=== PATIENT | male | born 1955 | race Caucasian/White ===

== ENCOUNTER 2021-09-11 12:35 | Inpatient (IN) | payer BC ==
[2021-09-11 17:55] LABS: #Eosinphils 0.3 10x3/uL (0.0-0.5); #Monocytes 0.9 10x3/uL (0.0-1.1); #Neutrophils 5.6 10x3/uL (1.5-8.4); %Basophils 0.5 % (0.0-2.0); %Eosinophils 3.3 % (0.0-6.0); %Lymphocytes 17.7 % (18.0-47.0); Hemoglobin 12.4 g/dL (13.5-17.5); Mean Corpuscular Hemoglobin 30.3 pg (27.0-33.0); Mean Corpuscular Volume 89.2 fl (81.2-95.1); Mean Platelet Volume 9.4 fl (7.4-10.4); Platelet Count 347 10x3/uL (150-450); RBC Distribution Width 13.2 % (11.5-14.5); Red Blood Cell (RBC) Count 4.09 10x6/uL (4.32-5.72); White Blood Cell (WBC) Count 8.4 10x3/uL (3.5-10.5)
[2021-09-11 18:04] LABS: ALT (SGPT) 26 U/L (8-55); AST (SGOT) 27 U/L (5-34); Albumin 3.4 g/dL (3.4-4.8); Alkaline Phosphatase 66 U/L (40-110); Anion Gap 11 mmol/L (10-20); BUN (Urea Nitrogen) 15 mg/dL (8.4-25.7); Bilirubin, Total 0.3 mg/dL (0.2-1.2); Calc. Creatinine Clearance 0 mL/min (70-130); Calcium 9.1 mg/dL (7.8-10.44); Carbon Dioxide 31 mmol/L (23-31); Chloride 101 mmol/L (98-107); Globulin 3.6 g/dL (2.4-3.5); Glucose 94 mg/dL (80-115); Potassium 3.4 mmol/L (3.5-5.1); Sodium 140 mmol/L (136-145)
[2021-09-11] MEDS ORDERED: Cefepime 2 GM VIAL ONE (19:02)
[2021-09-11 20:44] LABS: Bilirubin Neg (Negative); Blood, Urine 10 (Negative); Clarity Clear (Clear); Glucose, Urine (Dipstick) Normal (Negative); Ketone, Urine Negative (Negative); Leukocyte Negative (Negative); Nitrite Negative (Negative); Protein, Urine (Dipstick) 15 mg/dl (Neg-Trace); Urobilinogen Normal mg/dL (Less than 2); pH, Urine 6.5 (5.0-9.0)
[2021-09-11 20:58] LABS: Bacteria/HPF Rare-Few HPF (None Seen); RBC/HPF 0-3 HPF (0-3); Squamous Epithelial 0-3 HPF (0-3); WBC/HPF 0-3 HPF (0-3)
[2021-09-11 20:59] LABS: Calcium Oxalate Crystals 1+ HPF (None Seen); Mucous/LPF Rare LPF (<2+)
[2021-09-11 21:20] LABS: SARS-CoV-2 NAA Rapid Test Not Detected (NotDetected)
[2021-09-12 01:43] VITALS: BMI 22.4
[2021-09-12] MEDS ORDERED: Calcium Carbonate 500 MG ChewTAB PO PRN (04:02)
[2021-09-12] MEDS ORDERED: Senokot S 8.6-50 MG TAB PO PRN (04:02)
[2021-09-12] MEDS ORDERED: Guaifenesin DM 100-10/5 ML UDCUP PO PRN (04:02)
[2021-09-12] MEDS ORDERED: Acetaminophen 325 MG TAB PO PRN (04:02)
[2021-09-12] MEDS ORDERED: Zolpidem Tartrate 5 MG TAB PO PRN (04:02)
[2021-09-12] MEDS ORDERED: Potassium Chloride 20 MEQ TAB PO SCH (04:15)
[2021-09-12] MEDS ORDERED: Pharmacy to Dose ABX/VANCOMYCIN IVPB PRN (04:26)
[2021-09-12] MEDS ORDERED: Sodium Chloride 0.9% 500 ML IV SCH (04:30)
[2021-09-12 05:42] LABS: Anion Gap 11 mmol/L (10-20); BUN (Urea Nitrogen) 19 mg/dL (8.4-25.7); Calc. Creatinine Clearance 82 mL/min (70-130); Calcium 8.3 mg/dL (7.8-10.44); Carbon Dioxide 27 mmol/L (23-31); Chloride 106 mmol/L (98-107); Glucose 117 mg/dL (80-115); Potassium 3.5 mmol/L (3.5-5.1); Sodium 140 mmol/L (136-145)
[2021-09-12 05:51] LABS: #Basophils 0.1 10x3/uL (0.0-0.2); #Eosinphils 0.3 10x3/uL (0.0-0.5); #Monocytes 0.9 10x3/uL (0.0-1.1); #Neutrophils 4.3 10x3/uL (1.5-8.4); %Basophils 0.8 % (0.0-2.0); %Eosinophils 3.9 % (0.0-6.0); %Monocytes 12.9 % (0.0-10.0); %Neutrophils 59.8 % (40.0-75.0); Hemoglobin 11.1 g/dL (13.5-17.5); Mean Corpuscular HGB CONC 33.8 g/dL (32.0-36.0); Mean Corpuscular Hemoglobin 30.6 pg (27.0-33.0); Mean Corpuscular Volume 90.4 fl (81.2-95.1); Mean Platelet Volume 9.4 fl (7.4-10.4); Platelet Count 293 10x3/uL (150-450); RBC Distribution Width 13.2 % (11.5-14.5); Red Blood Cell (RBC) Count 3.63 10x6/uL (4.32-5.72); White Blood Cell (WBC) Count 7.2 10x3/uL (3.5-10.5)
[2021-09-12] MEDS: Vancomycin HCl 750 MG in Sodium Chloride 0.9% 250 ML 250 ML IVPB SCH ×2 (06:49→17:05)
[2021-09-12] MEDS: Enoxaparin Sodium 40 MG/0.4 ML SYRINGE SC SCH (09:17)
[2021-09-12] MEDS: Tamsulosin HCl 0.4 MG CAP PO SCH (09:18)
[2021-09-12] MEDS: Baclofen 10 MG TAB PO SCH ×4 (09:18→21:12)
[2021-09-12] MEDS: Cefepime 1 GM in Sodium Chloride 0.9% 100 ML IVPB SCH ×2 (09:18→21:11)
[2021-09-12] MEDS: Furosemide 40 MG TAB PO SCH (09:18)
[2021-09-12] MEDS: Losartan Potassium 50 MG TAB PO SCH (09:18)
[2021-09-12] MEDS: HYDROcodone/Acetaminophen 5/325 mg Tablet PO PRN (14:12)
[2021-09-12] MEDS: Dutasteride 0.5 MG CAP PO SCH (21:11)
[2021-09-12] MEDS: Propranolol HCl LA 80 MG CAP PO SCH (21:11)
[2021-09-12] MEDS: Atorvastatin Calcium 40 MG TAB PO SCH (21:14)
[2021-09-13 05:10] LABS: Vancomycin, Trough 10.2 ug/mL
[2021-09-13] MEDS: Vancomycin HCl 1 GM in Sodium Chloride 0.9% 250 ML 250 ML IVPB SCH ×2 (05:51→18:27)
[2021-09-13] MEDS: Cefepime 1 GM in Sodium Chloride 0.9% 100 ML IVPB SCH ×2 (08:48→21:28)
[2021-09-13] MEDS: Furosemide 40 MG TAB PO SCH (08:48)
[2021-09-13] MEDS: Losartan Potassium 50 MG TAB PO SCH (08:48)
[2021-09-13] MEDS: Enoxaparin Sodium 40 MG/0.4 ML SYRINGE SC SCH (08:48)
[2021-09-13] MEDS: Tamsulosin HCl 0.4 MG CAP PO SCH (08:48)
[2021-09-13] MEDS: Baclofen 10 MG TAB PO SCH ×4 (08:48→21:29)
[2021-09-13] MEDS: Propranolol HCl LA 80 MG CAP PO SCH (21:29)
[2021-09-13] MEDS: Dutasteride 0.5 MG CAP PO SCH (21:29)
[2021-09-13] MEDS: Atorvastatin Calcium 40 MG TAB PO SCH (21:29)
[2021-09-14] MEDS: Vancomycin HCl 1 GM in Sodium Chloride 0.9% 250 ML 250 ML IVPB SCH (05:36)
[2021-09-14] MEDS ORDERED: Cefepime 2 GM in Sodium Chloride 0.9% 100 ML IVPB SCH (09:00)
[2021-09-14] MEDS: Baclofen 10 MG TAB PO SCH ×2 (10:14→21:42)
[2021-09-14] MEDS: Tamsulosin HCl 0.4 MG CAP PO SCH (10:15)
[2021-09-14] MEDS: Enoxaparin Sodium 40 MG/0.4 ML SYRINGE SC SCH (10:15)
[2021-09-14] MEDS: Losartan Potassium 50 MG TAB PO SCH (10:15)
[2021-09-14] MEDS: Furosemide 40 MG TAB PO SCH (10:15)
[2021-09-14] MEDS: HYDROcodone/Acetaminophen 5/325 mg Tablet PO PRN (10:57)
[2021-09-14 21:48] VITALS: BP 149/77; TEMP 98
== END 2021-09-14 14:30 | disposition home or self-care (01) | DRG 603 ==
LOC: CSHERS 12:35 → CSHTELE 09-12 00:07 → UNDOADMIN 09-12 00:07 → CSHTELE 09-12 04:02
PROVIDERS: ADMIT Student in an Organized Health Care Education/Training Program; ATTEND Internal Medicine
DX: L03.115 Cellulitis of right lower limb (principal); I69.351 Hemiplegia and hemiparesis following cerebral infarction affecting right dominant side; E78.5 Hyperlipidemia, unspecified; I10 Essential (primary) hypertension; N40.0 Benign prostatic hyperplasia without lower urinary tract symptoms; F90.9 Attention-deficit hyperactivity disorder, unspecified type; E87.6 Hypokalemia; E78.00 Pure hypercholesterolemia, unspecified; Z20.822 Contact with and (suspected) exposure to COVID-19; Z99.3 Dependence on wheelchair; Z87.891 Personal history of nicotine dependence; Z79.899 Other long term (current) drug therapy; Z79.2 Long term (current) use of antibiotics
CPT/HCPCS: 36415; 80048; 80053; 80202; 81003; 81015; 83605; 85025; 85652; 86140; 87040; 93923; 93970; J0692; J1650; J3370; J3490; J7030; J7050; U0002

== ENCOUNTER 2022-02-17 13:39 | Inpatient (IN) | payer BC ==
[2022-02-17 14:11] LABS: ALV-art Gradient 188.375 mmHg (0-20); Actual Bicarbonate (HCO3a) 20.1 mEq/L (22-28); Base Excess (BEa) -5.4 mEq/L (-2.0 to +3.0); CO2 Tension 39.3 mmHg (35.0-45.0); Calcium, Ionized (arterial) 1.22 mmol/L (1.12-1.30); Carboxyhemoglobin (COHb) 0.6 gm% (0.0-3.0); Hemoglobin (Hb) 16.4 g/dL (14.0-18.0); O2 Tension (PaO2), arterial 475.5 mmHg (> 80.0); Potassium - ABG Lab 3.8 mmol/L (3.70-5.30); Puncture Site LBA; pH, Arterial 7.33 (7.35-7.45)
[2022-02-17] MEDS ORDERED: Vancomycin HCl 500 MG VIAL ONE (14:15)
[2022-02-17] MEDS ORDERED: Piperacillin/Tazobactam 4.5 GM VIAL ONE (14:15)
[2022-02-17 14:27] LABS: #Monocytes 1.3 10x3/uL (0.0-1.1); #Neutrophils 12.6 10x3/uL (1.5-8.4); %Basophils 0.1 % (0.0-2.0); %Lymphocytes 6.2 % (18.0-47.0); %Monocytes 8.7 % (0.0-10.0); %Neutrophils 84.4 % (40.0-75.0); Hemoglobin 16.8 g/dL (13.5-17.5); Mean Corpuscular HGB CONC 33.5 g/dL (32.0-36.0); Mean Corpuscular Hemoglobin 30.2 pg (27.0-33.0); Mean Corpuscular Volume 90.1 fl (81.2-95.1); Mean Platelet Volume 10.8 fl (7.4-10.4); Platelet Count 205 10x3/uL (150-450); RBC Distribution Width 13.9 % (11.5-14.5); Red Blood Cell (RBC) Count 5.56 10x6/uL (4.32-5.72)
[2022-02-17 14:43] LABS: INR-International Normal Ratio 1.1; PTT 22.8 sec (22.0-33.0); Prothrombin Time 11.7 sec (9.5-12.1)
[2022-02-17] MEDS ORDERED: Iopamidol 300 61% 100 ML VIAL FS ONE (14:47)
[2022-02-17 14:49] LABS: ALT (SGPT) 32 U/L (8-55); AST (SGOT) 38 U/L (5-34); Albumin 4.4 g/dL (3.4-4.8); Alkaline Phosphatase 68 U/L (40-110); Anion Gap 26 mmol/L (10-20); BUN (Urea Nitrogen) 63 mg/dL (8.4-25.7); Calc. Creatinine Clearance 0 mL/min (70-130); Calcium 9.8 mg/dL (7.8-10.44); Carbon Dioxide 17 mmol/L (23-31); Chloride 106 mmol/L (98-107); Glucose 145 mg/dL (80-115); Potassium 4.1 mmol/L (3.5-5.1); Protein, Total 8.4 g/dL (5.8-8.1); Sodium 145 mmol/L (136-145)
[2022-02-17 15:07] LABS: Acetaminophen Less than 10.0 mcg/mL (10.0-30.0); Alcohol Less than 10 mg/dL (Less than 10); Salicylate Less than 8.0 mg/dL (15.0-30.0)
[2022-02-17 15:09] LABS: Lipase Less than 4 U/L (8-78)
[2022-02-17 15:22] LABS: Bilirubin 1+ (Negative); Blood, Urine 250 (Negative); Clarity Clear (Clear); Glucose, Urine (Dipstick) Normal (Negative); Ketone, Urine 50 mg/dL (Negative); Leukocyte Negative (Negative); Nitrite Negative (Negative); Protein, Urine (Dipstick) 100 mg/dl (Neg-Trace); Specific Gravity, Urine 1.025 (1.002-1.036); Urobilinogen Normal mg/dL (Less than 2)
[2022-02-17 15:30] LABS: Bacteria/HPF None Seen HPF (None Seen); Squamous Epithelial 0-3 HPF (0-3); WBC/HPF 0-3 HPF (0-3)
[2022-02-17 15:33] LABS: Amphetamine Detected (NotDetected); Barbiturates Screen Not Detected (NotDetected); Benzodiazepine Screen Not Detected (NotDetected); Cocaine Metabolite Screen Not Detected (NotDetected); Methadone Not Detected (NotDetected); Methamphetamine Detected (NotDetected); Opiate Screen Not Detected (NotDetected); Oxycodone Screen Not Detected (NotDetected); Phencyclidine (PCP) Not Detected (NotDetected); THC/Cannabinoid Screen Not Detected (NotDetected); Tricyclic Screen Not Detected (NotDetected)
[2022-02-17] MEDS ORDERED: Propofol 1,000 MG/100 ML VIAL IV ONE (15:57)
[2022-02-17] MEDS ORDERED: Fentanyl 100 MCG/2 ML VIAL ONE (15:58)
[2022-02-17] MEDS ORDERED: Pantoprazole 40 MG VIAL ONE (16:14)
[2022-02-17 16:28] LABS: SARS-CoV-2 NAA Rapid Test Not Detected (NotDetected)
[2022-02-17] MEDS ORDERED: Ondansetron PF 4 MG/2 ML Vial IVP PRN (17:55)
[2022-02-17] MEDS ORDERED: Norepinephrine 8 MG/0.9% NS 250 ML IVPB PRN (17:55)
[2022-02-17] MEDS ORDERED: Ventilator Sedation Protocol 1 EACH FS PRN (18:00)
[2022-02-17] MEDS ORDERED: Piperacillin/Tazobactam 3.375 GM in Sodium Chloride 0.9% 100 ML IVPB SCH (18:00)
[2022-02-17 18:03] LABS: Lactic Acid 1.4 mmol/L (0.5-2.2)
[2022-02-17] MEDS ORDERED: Pantoprazole 80 MG, Admixture Fee 1 EACH in Sodium Chloride 0.9% 100 ML IVP SCH (18:15)
[2022-02-17] MEDS ORDERED: DISCONTINUE PREVIOUS NARCOTIC PAIN MEDICATIONS AND BENZODIAZEPINES FS SCH (19:45)
[2022-02-17] MEDS ORDERED: Fentanyl BOLUS 250 ML IVPB PRN (19:45)
[2022-02-17] MEDS ORDERED: fentaNYL Citrate-0.9 % NaCl/PF 100 ML IVPB SCH (19:45)
[2022-02-17] MEDS ORDERED: Propofol BOLUS 1,000 MG/100 ML VIAL IV PRN (19:45)
[2022-02-17 20:06] LABS: Hemoglobin 15.8 g/dL (13.5-17.5); Platelet Count 196 10x3/uL (150-450)
[2022-02-17] MEDS ORDERED: Vancomycin 1 GM in Premix Bag 1 BAG IVPB SCH (21:00)
[2022-02-17] MEDS: Piperacillin/Tazobactam 3.375 GM in Sodium Chloride 0.9% 100 ML IVPB SCH (21:00)
[2022-02-17] MEDS ORDERED: Famotidine/PF 20 mg/2ml Vial SLOW IVP SCH (21:00)
[2022-02-17] MEDS: Sodium Chloride 0.9% 1,000 ML IV SCH (21:03)
[2022-02-17] MEDS: Pantoprazole 80 MG in Sodium Chloride 0.9% 100 ML IVPB SCH (21:17)
[2022-02-17] MEDS: Propofol 1,000 MG/100 ML VIAL IV PRN (21:18)
[2022-02-17 22:45] LABS: Actual Bicarbonate (HCO3a) 22.6 mEq/L (22-28); Base Excess (BEa) -1.4 mEq/L (-2.0 to +3.0); Calcium, Ionized (arterial) 1.21 mmol/L (1.12-1.30); Carboxyhemoglobin (COHb) 0.3 gm% (0.0-3.0); Hemoglobin (Hb) 15.6 g/dL (14.0-18.0); O2 Tension (PaO2), arterial 102.8 mmHg (> 80.0); Potassium - ABG Lab 3.3 mmol/L (3.70-5.30); Puncture Site RBA; pH, Arterial 7.42 (7.35-7.45)
[2022-02-18] MEDS: Propofol 1,000 MG/100 ML VIAL IV PRN ×2 (02:03→09:07)
[2022-02-18 03:25] LABS: #Monocytes 1.7 10x3/uL (0.0-1.1); #Neutrophils 15.7 10x3/uL (1.5-8.4); %Basophils 0.1 % (0.0-2.0); %Lymphocytes 4.9 % (18.0-47.0); %Monocytes 9.1 % (0.0-10.0); %Neutrophils 85.6 % (40.0-75.0); Hemoglobin 14.1 g/dL (13.5-17.5); Mean Corpuscular HGB CONC 34.7 g/dL (32.0-36.0); Mean Corpuscular Hemoglobin 30.5 pg (27.0-33.0); Mean Corpuscular Volume 87.7 fl (81.2-95.1); Mean Platelet Volume 10.4 fl (7.4-10.4); Platelet Count 172 10x3/uL (150-450); RBC Distribution Width 14.6 % (11.5-14.5); Red Blood Cell (RBC) Count 4.63 10x6/uL (4.32-5.72); White Blood Cell (WBC) Count 18.4 10x3/uL (3.5-10.5)
[2022-02-18 03:42] LABS: AST (SGOT) 47 U/L (5-34); Anion Gap 18 mmol/L (10-20); Bilirubin, Total 0.7 mg/dL (0.2-1.2); Calcium 8.8 mg/dL (7.8-10.44); Carbon Dioxide 22 mmol/L (23-31); Chloride 110 mmol/L (98-107); Potassium 3.5 mmol/L (3.5-5.1); Sodium 146 mmol/L (136-145)
[2022-02-18] MEDS: Piperacillin/Tazobactam 3.375 GM in Sodium Chloride 0.9% 100 ML IVPB SCH ×3 (03:47→20:03)
[2022-02-18 04:07] LABS: ALT (SGPT) 31 U/L (8-55); Albumin 3.4 g/dL (3.4-4.8); Alkaline Phosphatase 52 U/L (40-110); BUN (Urea Nitrogen) 54 mg/dL (8.4-25.7); CK (CPK) 3340 U/L (30-200); Calc. Creatinine Clearance 52 mL/min (70-130); Globulin 3.1 g/dL (2.4-3.5); Glucose 137 mg/dL (80-115); Protein, Total 6.5 g/dL (5.8-8.1)
[2022-02-18 06:35] LABS: Hemoglobin 13.5 g/dL (13.5-17.5); Platelet Count 171 10x3/uL (150-450)
[2022-02-18] MEDS: Pantoprazole 80 MG in Sodium Chloride 0.9% 100 ML IVPB SCH ×2 (07:12→17:16)
[2022-02-18] MEDS: Sodium Chloride 0.9% 1,000 ML IV SCH (07:36)
[2022-02-18 14:43] LABS: Hemoglobin 13.5 g/dL (13.5-17.5); Platelet Count 151 10x3/uL (150-450)
[2022-02-18] MEDS: VANCOMYCIN 1.25 GM/250 ML BAG 1.25 GM in Premix Bag 1 BAG IVPB SCH (15:39)
[2022-02-19] MEDS: Pantoprazole 80 MG in Sodium Chloride 0.9% 100 ML IVPB SCH ×3 (02:55→23:02)
[2022-02-19 05:01] LABS: Hemoglobin 13.2 g/dL (13.5-17.5); Mean Corpuscular HGB CONC 33.4 g/dL (32.0-36.0); Mean Corpuscular Volume 89.8 fl (81.2-95.1); Mean Platelet Volume 11.2 fl (7.4-10.4); Platelet Count 133 10x3/uL (150-450); RBC Distribution Width 14.8 % (11.5-14.5); White Blood Cell (WBC) Count 14.3 10x3/uL (3.5-10.5)
[2022-02-19 05:14] LABS: ALT (SGPT) 25 U/L (8-55); AST (SGOT) 44 U/L (5-34); Albumin 3.2 g/dL (3.4-4.8); Alkaline Phosphatase 78 U/L (40-110); Anion Gap 17 mmol/L (10-20); BUN (Urea Nitrogen) 39 mg/dL (8.4-25.7); Calc. Creatinine Clearance 66 mL/min (70-130); Calcium 8.9 mg/dL (7.8-10.44); Carbon Dioxide 21 mmol/L (23-31); Chloride 114 mmol/L (98-107); Globulin 3.1 g/dL (2.4-3.5); Glucose 118 mg/dL (80-115); Potassium 3.4 mmol/L (3.5-5.1); Protein, Total 6.3 g/dL (5.8-8.1); Sodium 149 mmol/L (136-145)
[2022-02-19] MEDS: Piperacillin/Tazobactam 3.375 GM in Sodium Chloride 0.9% 100 ML IVPB SCH ×3 (05:46→19:59)
[2022-02-19] MEDS: Sodium Chloride 0.9% 1,000 ML IV SCH ×2 (05:52→09:42)
[2022-02-19 05:55] LABS: MDiff Complete? YES
[2022-02-19 05:58] LABS: Band 22 % (5-11); Lymphocytes 4 % (21-51); Monocytes 10 % (0-10); Neutrophil 62 % (42-75); Platelet Morphology Comment Appears Adequate; Reactive Lymphocytes 2 % (0-10)
[2022-02-19 05:59] LABS: RBC Morphology Normal
[2022-02-19] MEDS: Acetaminophen 650 MG/20.3 ML UDCUP PO PRN ×2 (12:54→20:48)
[2022-02-19] MEDS: VANCOMYCIN 1.25 GM/250 ML BAG 1.25 GM in Premix Bag 1 BAG IVPB SCH (14:19)
[2022-02-19 14:25] LABS: Vancomycin, Trough 4.5 ug/mL
[2022-02-19] MEDS: hydrALAZINE 20 MG/ML VIAL SLOW IVP PRN ×2 (20:05→20:35)
[2022-02-19] MEDS ORDERED: Labetalol HCl 100 MG/20 ML VIAL SLOW IVP SCH (21:30)
[2022-02-20] MEDS: Sodium Chloride 0.9% 1,000 ML IV SCH (00:46)
[2022-02-20] MEDS: VANCOMYCIN 1.25 GM/250 ML BAG 1.25 GM in Premix Bag 1 BAG IVPB SCH ×2 (02:55→15:00)
[2022-02-20] MEDS ORDERED: Sodium Chloride 0.9% 100 ML ONE (04:02)
[2022-02-20] MEDS: Piperacillin/Tazobactam 3.375 GM in Sodium Chloride 0.9% 100 ML IVPB SCH ×3 (04:03→20:02)
[2022-02-20 05:19] LABS: Hemoglobin 12.8 g/dL (13.5-17.5); Mean Corpuscular HGB CONC 32.9 g/dL (32.0-36.0); Mean Corpuscular Hemoglobin 29.8 pg (27.0-33.0); Mean Corpuscular Volume 90.7 fl (81.2-95.1); Mean Platelet Volume 11.4 fl (7.4-10.4); Platelet Count 138 10x3/uL (150-450); RBC Distribution Width 15.3 % (11.5-14.5); Red Blood Cell (RBC) Count 4.29 10x6/uL (4.32-5.72); White Blood Cell (WBC) Count 16.5 10x3/uL (3.5-10.5)
[2022-02-20 05:33] LABS: ALT (SGPT) 21 U/L (8-55); AST (SGOT) 32 U/L (5-34); Alkaline Phosphatase 58 U/L (40-110); Anion Gap 15 mmol/L (10-20); BUN (Urea Nitrogen) 30 mg/dL (8.4-25.7); Calc. Creatinine Clearance 72 mL/min (70-130); Carbon Dioxide 25 mmol/L (23-31); Chloride 114 mmol/L (98-107); Estimated GFR 68; Globulin 3.3 g/dL (2.4-3.5); Glucose 115 mg/dL (80-115); Potassium 3.2 mmol/L (3.5-5.1); Protein, Total 6.3 g/dL (5.8-8.1); Sodium 151 mmol/L (136-145)
[2022-02-20 05:55] LABS: MDiff Complete? YES
[2022-02-20 05:58] LABS: Band 29 % (5-11); Lymphocytes 15 % (21-51); Monocytes 8 % (0-10); Neutrophil 48 % (42-75)
[2022-02-20 05:59] LABS: Dohle Bodies SLIGHT; Platelet Morphology Comment Appears Adequate; RBC Morphology Normal
[2022-02-20] MEDS ORDERED: Potassium Bicarbonate/Cit Ac 20 MEQ TAB PER TUBE SCH (08:45)
[2022-02-20] MEDS: Dexmedetomidine In 0.9 % NaCl 100 ML IVPB SCH ×3 (08:49→22:30)
[2022-02-20] MEDS: Dextrose 5 %-0.45 % NaCl 1,000 ML IV SCH (08:50)
[2022-02-20 08:52] LABS: Free T4 (Free Thyroxine) 0.89 ng/dL (0.70-1.48)
[2022-02-20] MEDS: hydrALAZINE 20 MG/ML VIAL SLOW IVP PRN (20:21)
[2022-02-21] MEDS: Pantoprazole 80 MG in Sodium Chloride 0.9% 100 ML IVPB SCH ×3 (00:50→22:06)
[2022-02-21 01:53] LABS: Vancomycin, Trough 17.8 ug/mL
[2022-02-21] MEDS: VANCOMYCIN 1.25 GM/250 ML BAG 1.25 GM in Premix Bag 1 BAG IVPB SCH ×2 (03:00→14:12)
[2022-02-21] MEDS: Dexmedetomidine In 0.9 % NaCl 100 ML IVPB SCH ×4 (03:28→20:37)
[2022-02-21] MEDS: Piperacillin/Tazobactam 3.375 GM in Sodium Chloride 0.9% 100 ML IVPB SCH ×3 (04:52→20:37)
[2022-02-21 05:51] LABS: Hemoglobin 11.5 g/dL (13.5-17.5); Mean Corpuscular HGB CONC 33.7 g/dL (32.0-36.0); Mean Corpuscular Hemoglobin 30.2 pg (27.0-33.0); Mean Corpuscular Volume 89.5 fl (81.2-95.1); Mean Platelet Volume 11.1 fl (7.4-10.4); Platelet Count 130 10x3/uL (150-450); RBC Distribution Width 15.1 % (11.5-14.5); Red Blood Cell (RBC) Count 3.81 10x6/uL (4.32-5.72); White Blood Cell (WBC) Count 14.4 10x3/uL (3.5-10.5)
[2022-02-21 06:05] LABS: ALT (SGPT) 23 U/L (8-55); AST (SGOT) 31 U/L (5-34); Albumin 2.8 g/dL (3.4-4.8); Alkaline Phosphatase 53 U/L (40-110); Anion Gap 13 mmol/L (10-20); BUN (Urea Nitrogen) 31 mg/dL (8.4-25.7); Bilirubin, Total 0.9 mg/dL (0.2-1.2); CK (CPK) 588 U/L (30-200); Calc. Creatinine Clearance 91 mL/min (70-130); Calcium 8.7 mg/dL (7.8-10.44); Carbon Dioxide 26 mmol/L (23-31); Chloride 114 mmol/L (98-107); Estimated GFR 87; Globulin 3.1 g/dL (2.4-3.5); Glucose 149 mg/dL (80-115); Magnesium 1.9 mg/dL (1.6-2.6); Potassium 3.1 mmol/L (3.5-5.1); Protein, Total 5.9 g/dL (5.8-8.1); Sodium 150 mmol/L (136-145)
[2022-02-21 06:06] LABS: MDiff Complete? YES
[2022-02-21 06:10] LABS: Band 17 % (5-11); Dohle Bodies SLIGHT; Eosinophils 1 % (0-10); Lymphocytes 10 % (21-51); Monocytes 6 % (0-10); Neutrophil 66 % (42-75); Platelet Morphology Comment Appears Adequate
[2022-02-21 06:11] LABS: RBC Morphology Normal
[2022-02-21] MEDS ORDERED: Potassium Bicarbonate/Cit Ac 20 MEQ TAB PER TUBE SCH (09:00)
[2022-02-21] MEDS ORDERED: Potassium Chloride 40 MEQ in Premix Bag 1 BAG IVPB SCH (09:00)
[2022-02-21] MEDS: Lorazepam 2 MG/ML VIAL SLOW IVP PRN (11:15)
[2022-02-21] MEDS: Dextrose 5 %-0.45 % NaCl 1,000 ML IV SCH (16:02)
[2022-02-22] MEDS: Dexmedetomidine In 0.9 % NaCl 100 ML IVPB SCH ×3 (00:58→16:25)
[2022-02-22] MEDS: Morphine 2 MG/ML VIAL SLOW IVP PRN ×2 (01:10→12:55)
[2022-02-22] MEDS: Lorazepam 2 MG/ML VIAL SLOW IVP PRN (01:24)
[2022-02-22] MEDS: VANCOMYCIN 1.25 GM/250 ML BAG 1.25 GM in Premix Bag 1 BAG IVPB SCH ×2 (01:52→13:35)
[2022-02-22 04:03] LABS: Hemoglobin 9.7 g/dL (13.5-17.5); Mean Corpuscular HGB CONC 34.3 g/dL (32.0-36.0); Mean Corpuscular Hemoglobin 30.7 pg (27.0-33.0); Mean Corpuscular Volume 89.6 fl (81.2-95.1); Mean Platelet Volume 11.1 fl (7.4-10.4); Platelet Count 115 10x3/uL (150-450); RBC Distribution Width 15.1 % (11.5-14.5); Red Blood Cell (RBC) Count 3.16 10x6/uL (4.32-5.72); White Blood Cell (WBC) Count 11.4 10x3/uL (3.5-10.5)
[2022-02-22 04:07] LABS: MDiff Complete? YES
[2022-02-22 04:23] LABS: ALT (SGPT) 29 U/L (8-55); AST (SGOT) 32 U/L (5-34); Albumin 2.4 g/dL (3.4-4.8); Alkaline Phosphatase 46 U/L (40-110); Anion Gap 12 mmol/L (10-20); BUN (Urea Nitrogen) 30 mg/dL (8.4-25.7); Bilirubin, Total 0.7 mg/dL (0.2-1.2); Calc. Creatinine Clearance 91 mL/min (70-130); Carbon Dioxide 27 mmol/L (23-31); Chloride 114 mmol/L (98-107); Estimated GFR 91; Globulin 2.8 g/dL (2.4-3.5); Glucose 112 mg/dL (80-115); Magnesium 1.8 mg/dL (1.6-2.6); Potassium 3.3 mmol/L (3.5-5.1); Protein, Total 5.2 g/dL (5.8-8.1); Sodium 150 mmol/L (136-145)
[2022-02-22 04:51] LABS: Platelet Morphology Comment Appears Decreased; RBC Morphology Normal
[2022-02-22 04:54] LABS: Lymphocytes 15 % (21-51); Monocytes 12 % (0-10); Neutrophil 73 % (42-75)
[2022-02-22] MEDS: Piperacillin/Tazobactam 3.375 GM in Sodium Chloride 0.9% 100 ML IVPB SCH (04:57)
[2022-02-22] MEDS ORDERED: Vancomycin 1 GM in Premix Bag 1 BAG IVPB SCH (09:15)
[2022-02-22] MEDS: Cefepime 2 GM in Sodium Chloride 0.9% 100 ML IVPB SCH ×2 (09:24→16:37)
[2022-02-22] MEDS: Pantoprazole 80 MG in Sodium Chloride 0.9% 100 ML IVPB SCH ×2 (09:30→20:08)
[2022-02-22] MEDS ORDERED: Albumin 25% 25 GM/100 ML BOT IVPB SCH (10:00)
[2022-02-22] MEDS: hydrALAZINE 20 MG/ML VIAL SLOW IVP PRN ×2 (11:47→17:25)
[2022-02-22 12:01] LABS: Bilirubin Neg (Negative); Blood, Urine 50 (Negative); Clarity Clear (Clear); Glucose, Urine (Dipstick) Normal (Negative); Ketone, Urine Negative (Negative); Leukocyte Negative (Negative); Nitrite Negative (Negative); Protein, Urine (Dipstick) 30 mg/dl (Neg-Trace); Urobilinogen Normal mg/dL (Less than 2)
[2022-02-22 12:07] LABS: Urine Culture Reflex No No
[2022-02-22 12:09] LABS: Bacteria/HPF None Seen HPF (None Seen); RBC/HPF 0-3 HPF (0-3); Squamous Epithelial 0-3 HPF (0-3); WBC/HPF 0-3 HPF (0-3)
[2022-02-22] MEDS ORDERED: Potassium Phosphate 30 MMOL in Sodium Chloride 0.9% 250 ML 250 ML IVPB SCH (13:15)
[2022-02-22 14:37] LABS: Potassium, Urine 23.9 mmol/L
[2022-02-22] MEDS ORDERED: Metolazone 5 MG TAB PO SCH (16:15)
[2022-02-22 16:32] LABS: Anion Gap 15 mmol/L (10-20); BUN (Urea Nitrogen) 25 mg/dL (8.4-25.7); Calc. Creatinine Clearance 114 mL/min (70-130); Calcium 8.5 mg/dL (7.8-10.44); Carbon Dioxide 25 mmol/L (23-31); Chloride 109 mmol/L (98-107); Estimated GFR 99; Glucose 97 mg/dL (80-115); Potassium 3.3 mmol/L (3.5-5.1); Sodium 146 mmol/L (136-145)
[2022-02-22] MEDS: Acetaminophen 650 MG Suppository PR PRN (18:40)
[2022-02-23] MEDS: Cefepime 2 GM in Sodium Chloride 0.9% 100 ML IVPB SCH ×3 (00:22→17:38)
[2022-02-23] MEDS: VANCOMYCIN 1.25 GM/250 ML BAG 1.25 GM in Premix Bag 1 BAG IVPB SCH ×2 (01:15→13:36)
[2022-02-23 03:14] LABS: #Basophils 0.1 10x3/uL (0.0-0.2); #Eosinphils 0.4 10x3/uL (0.0-0.5); #Monocytes 1.3 10x3/uL (0.0-1.1); #Neutrophils 11.1 10x3/uL (1.5-8.4); %Basophils 0.4 % (0.0-2.0); %Eosinophils 2.9 % (0.0-6.0); %Lymphocytes 7.8 % (18.0-47.0); %Monocytes 8.8 % (0.0-10.0); %Neutrophils 77.7 % (40.0-75.0); Hemoglobin 10.4 g/dL (13.5-17.5); Mean Corpuscular HGB CONC 33.1 g/dL (32.0-36.0); Mean Corpuscular Hemoglobin 29.7 pg (27.0-33.0); Mean Corpuscular Volume 89.7 fl (81.2-95.1); Mean Platelet Volume 10.6 fl (7.4-10.4); Platelet Count 146 10x3/uL (150-450); White Blood Cell (WBC) Count 14.3 10x3/uL (3.5-10.5)
[2022-02-23] MEDS: Acetaminophen 650 MG Suppository PR PRN (03:14)
[2022-02-23] MEDS: hydrALAZINE 20 MG/ML VIAL SLOW IVP PRN ×2 (03:14→12:58)
[2022-02-23 03:23] LABS: INR-International Normal Ratio 1.1; Prothrombin Time 11.4 sec (9.5-12.1)
[2022-02-23 03:49] LABS: ALT (SGPT) 32 U/L (8-55); AST (SGOT) 33 U/L (5-34); Albumin 2.8 g/dL (3.4-4.8); Alkaline Phosphatase 49 U/L (40-110); Anion Gap 15 mmol/L (10-20); BUN (Urea Nitrogen) 21 mg/dL (8.4-25.7); Bilirubin, Total 1.1 mg/dL (0.2-1.2); CK (CPK) 241 U/L (30-200); Calc. Creatinine Clearance 111 mL/min (70-130); Calcium 8.3 mg/dL (7.8-10.44); Carbon Dioxide 23 mmol/L (23-31); Chloride 110 mmol/L (98-107); Estimated GFR 98; Glucose 89 mg/dL (80-115); Magnesium 1.6 mg/dL (1.6-2.6); Protein, Total 5.8 g/dL (5.8-8.1); Sodium 145 mmol/L (136-145)
[2022-02-23 03:54] LABS: Potassium 2.9 mmol/L (3.5-5.1)
[2022-02-23] MEDS ORDERED: Magnesium 2 GM/50 ML BAG (IN WATER) ONE (04:21)
[2022-02-23] MEDS: Potassium Chloride 20 MEQ in Premix Bag 1 BAG IVPB SCH ×2 (04:25→06:42)
[2022-02-23] MEDS ORDERED: Magnesium 2 GM/50 ML(in water) 2 GM in Premix Bag 1 BAG IVPB SCH (04:30)
[2022-02-23] MEDS: Pantoprazole 80 MG in Sodium Chloride 0.9% 100 ML IVPB SCH ×2 (06:43→20:37)
[2022-02-23] MEDS ORDERED: Potassium Phosphate 30 MMOL in Sodium Chloride 0.9% 250 ML 250 ML IVPB SCH (07:00)
[2022-02-23] MEDS ORDERED: Metolazone 5 MG TAB PO SCH (08:30)
[2022-02-23] MEDS: Metolazone 2.5 MG TAB PO SCH (09:00)
[2022-02-23] MEDS: Spironolactone 25 MG TAB PO SCH (09:00)
[2022-02-23 13:07] LABS: Vancomycin, Trough 17.9 ug/mL
[2022-02-23] MEDS: Acetaminophen 650 MG/20.3 ML UDCUP PO PRN (13:37)
[2022-02-23] MEDS: Dutasteride 0.5 MG CAP PO SCH (20:38)
[2022-02-23] MEDS: Atorvastatin Calcium 40 MG TAB PO SCH (20:38)
[2022-02-23] MEDS: Baclofen 10 MG TAB PO SCH (20:38)
[2022-02-23] MEDS ORDERED: Baclofen 10 MG TAB PO SCH (21:00)
[2022-02-24] MEDS: Cefepime 2 GM in Sodium Chloride 0.9% 100 ML IVPB SCH ×3 (00:55→21:44)
[2022-02-24] MEDS: Acetaminophen 650 MG/20.3 ML UDCUP PO PRN (00:58)
[2022-02-24] MEDS: VANCOMYCIN 1.25 GM/250 ML BAG 1.25 GM in Premix Bag 1 BAG IVPB SCH ×2 (02:21→21:31)
[2022-02-24 05:37] LABS: #Eosinphils 0.3 10x3/uL (0.0-0.5); #Monocytes 1.1 10x3/uL (0.0-1.1); #Neutrophils 9.5 10x3/uL (1.5-8.4); %Basophils 0.3 % (0.0-2.0); %Lymphocytes 10.4 % (18.0-47.0); %Monocytes 8.9 % (0.0-10.0); %Neutrophils 75.3 % (40.0-75.0); Hemoglobin 11.6 g/dL (13.5-17.5); Mean Corpuscular HGB CONC 35.3 g/dL (32.0-36.0); Mean Corpuscular Hemoglobin 30.3 pg (27.0-33.0); Mean Corpuscular Volume 85.9 fl (81.2-95.1); Mean Platelet Volume 10.8 fl (7.4-10.4); Platelet Count 200 10x3/uL (150-450); RBC Distribution Width 14.6 % (11.5-14.5); Red Blood Cell (RBC) Count 3.83 10x6/uL (4.32-5.72); White Blood Cell (WBC) Count 12.7 10x3/uL (3.5-10.5)
[2022-02-24 05:54] LABS: ALT (SGPT) 32 U/L (8-55); AST (SGOT) 32 U/L (5-34); Albumin 2.9 g/dL (3.4-4.8); Alkaline Phosphatase 55 U/L (40-110); Anion Gap 15 mmol/L (10-20); BUN (Urea Nitrogen) 17 mg/dL (8.4-25.7); Bilirubin, Total 1.1 mg/dL (0.2-1.2); Calc. Creatinine Clearance 103 mL/min (70-130); Calcium 8.8 mg/dL (7.8-10.44); Carbon Dioxide 24 mmol/L (23-31); Chloride 103 mmol/L (98-107); Estimated GFR 97; Globulin 3.2 g/dL (2.4-3.5); Glucose 103 mg/dL (80-115); Magnesium 1.7 mg/dL (1.6-2.6); Protein, Total 6.1 g/dL (5.8-8.1); Sodium 139 mmol/L (136-145)
[2022-02-24 05:57] LABS: Potassium 2.9 mmol/L (3.5-5.1)
[2022-02-24] MEDS: Potassium Chloride 20 MEQ TAB PO SCH ×4 (06:58→21:47)
[2022-02-24] MEDS: Pantoprazole 80 MG in Sodium Chloride 0.9% 100 ML IVPB SCH ×2 (07:01→20:23)
[2022-02-24] MEDS ORDERED: Tamsulosin HCl 0.4 MG CAP PO SCH (09:00)
[2022-02-24] MEDS: Spironolactone 25 MG TAB PO SCH (10:15)
[2022-02-24] MEDS: Metolazone 2.5 MG TAB PO SCH (10:15)
[2022-02-24] MEDS: Baclofen 10 MG TAB PO SCH ×2 (10:15→21:39)
[2022-02-24] MEDS: Tamsulosin HCl 0.4 MG CAP PO SCH (10:16)
[2022-02-24] MEDS: Magnesium 2 GM/50 ML(in water) 2 GM in Premix Bag 1 BAG IVPB SCH ×2 (10:17→13:15)
[2022-02-24] MEDS ORDERED: Electrolyte Replacement Protocol FS SCH (16:00)
[2022-02-24] MEDS ORDERED: VANCOMYCIN 1.25 GM/250 ML BAG 1.25 GM in Premix Bag 1 BAG IVPB SCH (16:00)
[2022-02-24] MEDS: Albumin 25% 25 GM/100 ML BOT IVPB SCH ×2 (16:33→21:51)
[2022-02-24] MEDS ORDERED: PHOS-NAK 1 PKT PACK PO SCH (17:00)
[2022-02-24] MEDS: Atorvastatin Calcium 40 MG TAB PO SCH (21:38)
[2022-02-24] MEDS: Dutasteride 0.5 MG CAP PO SCH (21:39)
[2022-02-24] MEDS ORDERED: Potassium Chloride 20 MEQ TAB PO SCH (21:45)
[2022-02-24] MEDS: D5 LR w/20 mEq KCL 1,000 ML IV SCH (21:52)
[2022-02-24] MEDS ORDERED: Albumin 25% 25 GM/100 ML BOT IVPB SCH (22:00)
[2022-02-25] MEDS: D5 LR w/20 mEq KCL 1,000 ML IV SCH (04:01)
[2022-02-25 04:15] LABS: #Eosinphils 0.3 10x3/uL (0.0-0.5); #Neutrophils 8.2 10x3/uL (1.5-8.4); %Basophils 0.3 % (0.0-2.0); %Eosinophils 2.5 % (0.0-6.0); %Lymphocytes 11.6 % (18.0-47.0); %Neutrophils 74.7 % (40.0-75.0); Hemoglobin 11.2 g/dL (13.5-17.5); Mean Corpuscular HGB CONC 34.7 g/dL (32.0-36.0); Mean Corpuscular Hemoglobin 30.1 pg (27.0-33.0); Mean Corpuscular Volume 86.8 fl (81.2-95.1); Mean Platelet Volume 10.2 fl (7.4-10.4); Platelet Count 219 10x3/uL (150-450); RBC Distribution Width 14.2 % (11.5-14.5); Red Blood Cell (RBC) Count 3.72 10x6/uL (4.32-5.72)
[2022-02-25 04:29] LABS: Phosphorus 2.7 mg/dL (2.3-4.7)
[2022-02-25] MEDS: Cefepime 2 GM in Sodium Chloride 0.9% 100 ML IVPB SCH ×3 (04:32→21:44)
[2022-02-25 04:37] LABS: ALT (SGPT) 27 U/L (8-55); AST (SGOT) 23 U/L (5-34); Albumin 3.5 g/dL (3.4-4.8); Alkaline Phosphatase 47 U/L (40-110); Anion Gap 16 mmol/L (10-20); BUN (Urea Nitrogen) 17 mg/dL (8.4-25.7); Bilirubin, Total 1.4 mg/dL (0.2-1.2); Calc. Creatinine Clearance 93 mL/min (70-130); Calcium 9.3 mg/dL (7.8-10.44); Carbon Dioxide 24 mmol/L (23-31); Chloride 100 mmol/L (98-107); Estimated GFR 94; Globulin 3.1 g/dL (2.4-3.5); Glucose 99 mg/dL (80-115); Magnesium 1.8 mg/dL (1.6-2.6); Potassium 3.2 mmol/L (3.5-5.1); Protein, Total 6.6 g/dL (5.8-8.1); Sodium 137 mmol/L (136-145)
[2022-02-25] MEDS ORDERED: VANCOMYCIN 1.25 GM/250 ML BAG 1.25 GM in Premix Bag 1 BAG IVPB SCH ×2 (06:00→14:26)
[2022-02-25] MEDS ORDERED: Potassium Chloride 20 MEQ TAB PO SCH (06:00)
[2022-02-25] MEDS: Pantoprazole 80 MG in Sodium Chloride 0.9% 100 ML IVPB SCH (06:42)
[2022-02-25] MEDS ORDERED: Potassium Phosphate 30 MMOL in Sodium Chloride 0.9% 250 ML 250 ML IVPB SCH (08:00)
[2022-02-25] MEDS ORDERED: Magnesium 2 GM/50 ML(in water) 2 GM in Premix Bag 1 BAG IVPB SCH (09:00)
[2022-02-25] MEDS: Tamsulosin HCl 0.4 MG CAP PO SCH (09:50)
[2022-02-25] MEDS: Spironolactone 25 MG TAB PO SCH (09:50)
[2022-02-25] MEDS: Baclofen 10 MG TAB PO SCH ×2 (09:51→21:43)
[2022-02-25] MEDS ORDERED: Ondansetron ODT 4 MG TAB PO PRN (14:26)
[2022-02-25] MEDS ORDERED: Labetalol HCl 100 MG/20 ML VIAL SLOW IVP PRN (14:26)
[2022-02-25] MEDS ORDERED: Calcium Carbonate 500 MG ChewTAB PO PRN (14:26)
[2022-02-25] MEDS ORDERED: diphenhydrAMINE 25 MG CAP PO PRN (14:26)
[2022-02-25] MEDS ORDERED: hydrALAZINE 20 MG/ML VIAL SLOW IVP PRN (14:26)
[2022-02-25] MEDS ORDERED: Acetaminophen 650 MG Suppository PR PRN (14:26)
[2022-02-25] MEDS ORDERED: Moisturizing Cream (Eucerin) 113 GM JAR TOP PRN (14:27)
[2022-02-25] MEDS ORDERED: Senokot S 8.6-50 MG TAB PO PRN (14:27)
[2022-02-25] MEDS ORDERED: Benzonatate 100 MG CAP PO PRN (14:27)
[2022-02-25] MEDS ORDERED: Sodium Chloride 0.65% Nasal 44 ML BOT EA NARE PRN (14:27)
[2022-02-25] MEDS ORDERED: Artificial Tear Sol 15 ML BOT EA EYE PRN (14:27)
[2022-02-25] MEDS ORDERED: Electrolyte Replacement Protocol 1 EACH FS SCH (14:30)
[2022-02-25] MEDS ORDERED: Amlodipine 5 MG TAB PO SCH (15:00)
[2022-02-25 18:12] LABS: Potassium 3.9 mmol/L (3.5-5.1)
[2022-02-25] MEDS: Atorvastatin Calcium 40 MG TAB PO SCH (21:42)
[2022-02-25] MEDS: Dutasteride 0.5 MG CAP PO SCH (21:42)
[2022-02-26 04:44] LABS: #Basophils 0.1 10x3/uL (0.0-0.2); #Eosinphils 0.3 10x3/uL (0.0-0.5); %Basophils 0.4 % (0.0-2.0); %Eosinophils 2.1 % (0.0-6.0); %Lymphocytes 8.6 % (18.0-47.0); %Monocytes 6.8 % (0.0-10.0); %Neutrophils 79.7 % (40.0-75.0); Hemoglobin 11.8 g/dL (13.5-17.5); Mean Corpuscular HGB CONC 34.4 g/dL (32.0-36.0); Mean Corpuscular Hemoglobin 29.9 pg (27.0-33.0); Mean Corpuscular Volume 86.8 fl (81.2-95.1); Mean Platelet Volume 10.4 fl (7.4-10.4); Platelet Count 281 10x3/uL (150-450); RBC Distribution Width 14.3 % (11.5-14.5); Red Blood Cell (RBC) Count 3.95 10x6/uL (4.32-5.72); White Blood Cell (WBC) Count 15.1 10x3/uL (3.5-10.5)
[2022-02-26 05:04] LABS: ALT (SGPT) 33 U/L (8-55); AST (SGOT) 30 U/L (5-34); Albumin 3.5 g/dL (3.4-4.8); Alkaline Phosphatase 51 U/L (40-110); Anion Gap 16 mmol/L (10-20); BUN (Urea Nitrogen) 23 mg/dL (8.4-25.7); Bilirubin, Total 0.8 mg/dL (0.2-1.2); Calc. Creatinine Clearance 81 mL/min (70-130); Calcium 9.4 mg/dL (7.8-10.44); Carbon Dioxide 24 mmol/L (23-31); Chloride 100 mmol/L (98-107); Estimated GFR 81; Globulin 3.4 g/dL (2.4-3.5); Glucose 102 mg/dL (80-115); Magnesium 1.8 mg/dL (1.6-2.6); Potassium 4.1 mmol/L (3.5-5.1); Protein, Total 6.9 g/dL (5.8-8.1); Sodium 136 mmol/L (136-145)
[2022-02-26] MEDS ORDERED: Magnesium 2 GM/50 ML(in water) 2 GM in Premix Bag 1 BAG IVPB SCH (05:30)
[2022-02-26] MEDS: Cefepime 2 GM in Sodium Chloride 0.9% 100 ML IVPB SCH ×3 (05:43→21:55)
[2022-02-26] MEDS: Spironolactone 25 MG TAB PO SCH (10:32)
[2022-02-26] MEDS: Amlodipine 5 MG TAB PO SCH (10:33)
[2022-02-26] MEDS: Baclofen 10 MG TAB PO SCH ×2 (10:33→21:55)
[2022-02-26] MEDS: Acetaminophen 325 MG TAB PO PRN (10:34)
[2022-02-26] MEDS: Tamsulosin HCl 0.4 MG CAP PO SCH (10:34)
[2022-02-26] MEDS: Dutasteride 0.5 MG CAP PO SCH (21:55)
[2022-02-26] MEDS: Nystatin 500,000 UNITS/5 ML UDCUP SSW SCH (21:55)
[2022-02-26] MEDS: Atorvastatin Calcium 40 MG TAB PO SCH (21:55)
[2022-02-27] MEDS: Acetaminophen 325 MG TAB PO PRN (01:07)
[2022-02-27] MEDS: Cefepime 2 GM in Sodium Chloride 0.9% 100 ML IVPB SCH ×3 (04:31→21:16)
[2022-02-27 05:07] LABS: ALT (SGPT) 56 U/L (8-55); AST (SGOT) 49 U/L (5-34); Albumin 3.4 g/dL (3.4-4.8); Alkaline Phosphatase 53 U/L (40-110); Anion Gap 15 mmol/L (10-20); BUN (Urea Nitrogen) 28 mg/dL (8.4-25.7); Bilirubin, Total 0.4 mg/dL (0.2-1.2); Calc. Creatinine Clearance 75 mL/min (70-130); Calcium 9.3 mg/dL (7.8-10.44); Carbon Dioxide 23 mmol/L (23-31); Chloride 102 mmol/L (98-107); Estimated GFR 74; Globulin 3.3 g/dL (2.4-3.5); Glucose 131 mg/dL (80-115); Magnesium 1.9 mg/dL (1.6-2.6); Potassium 4.1 mmol/L (3.5-5.1); Protein, Total 6.7 g/dL (5.8-8.1); Sodium 136 mmol/L (136-145)
[2022-02-27 05:24] LABS: #Basophils 0.1 10x3/uL (0.0-0.2); #Eosinphils 0.3 10x3/uL (0.0-0.5); #Neutrophils 13.1 10x3/uL (1.5-8.4); %Basophils 0.4 % (0.0-2.0); %Eosinophils 2.1 % (0.0-6.0); %Lymphocytes 8.9 % (18.0-47.0); %Monocytes 5.8 % (0.0-10.0); %Neutrophils 80.3 % (40.0-75.0); Hemoglobin 11.5 g/dL (13.5-17.5); Mean Corpuscular HGB CONC 33.6 g/dL (32.0-36.0); Mean Corpuscular Hemoglobin 29.7 pg (27.0-33.0); Mean Corpuscular Volume 88.4 fl (81.2-95.1); Mean Platelet Volume 10.5 fl (7.4-10.4); Platelet Count 335 10x3/uL (150-450); RBC Distribution Width 14.6 % (11.5-14.5); Red Blood Cell (RBC) Count 3.87 10x6/uL (4.32-5.72); White Blood Cell (WBC) Count 16.3 10x3/uL (3.5-10.5)
[2022-02-27] MEDS ORDERED: Magnesium 2 GM/50 ML(in water) 2 GM in Premix Bag 1 BAG IVPB SCH (06:15)
[2022-02-27] MEDS: Tamsulosin HCl 0.4 MG CAP PO SCH (09:51)
[2022-02-27] MEDS: Nystatin 500,000 UNITS/5 ML UDCUP SSW SCH ×4 (09:51→21:16)
[2022-02-27] MEDS: Spironolactone 25 MG TAB PO SCH (09:52)
[2022-02-27] MEDS: Amlodipine 5 MG TAB PO SCH (09:53)
[2022-02-27] MEDS: Baclofen 10 MG TAB PO SCH ×2 (09:53→21:16)
[2022-02-27] MEDS: Dutasteride 0.5 MG CAP PO SCH (21:16)
[2022-02-27] MEDS: Atorvastatin Calcium 40 MG TAB PO SCH (21:16)
[2022-02-28] MEDS: Cefepime 2 GM in Sodium Chloride 0.9% 100 ML IVPB SCH (05:07)
[2022-02-28 05:11] LABS: ALT (SGPT) 73 U/L (8-55); AST (SGOT) 49 U/L (5-34); Albumin 3.5 g/dL (3.4-4.8); Alkaline Phosphatase 55 U/L (40-110); Anion Gap 16 mmol/L (10-20); BUN (Urea Nitrogen) 24 mg/dL (8.4-25.7); Bilirubin, Total 0.8 mg/dL (0.2-1.2); Calc. Creatinine Clearance 71 mL/min (70-130); Calcium 9.7 mg/dL (7.8-10.44); Carbon Dioxide 24 mmol/L (23-31); Chloride 99 mmol/L (98-107); Estimated GFR 79; Globulin 3.7 g/dL (2.4-3.5); Glucose 100 mg/dL (80-115); Magnesium 1.7 mg/dL (1.6-2.6); Potassium 4.2 mmol/L (3.5-5.1); Protein, Total 7.2 g/dL (5.8-8.1); Sodium 135 mmol/L (136-145)
[2022-02-28] MEDS ORDERED: Magnesium 2 GM/50 ML(in water) 2 GM in Premix Bag 1 BAG IVPB SCH (05:45)
[2022-02-28 07:29] LABS: Hemoglobin 11.9 g/dL (13.5-17.5); Mean Corpuscular HGB CONC 34.5 g/dL (32.0-36.0); Mean Corpuscular Hemoglobin 29.9 pg (27.0-33.0); Mean Corpuscular Volume 86.7 fl (81.2-95.1); Platelet Count 348 10x3/uL (150-450); RBC Distribution Width 14.4 % (11.5-14.5); Red Blood Cell (RBC) Count 3.98 10x6/uL (4.32-5.72)
[2022-02-28 07:30] LABS: MDiff Complete? YES
[2022-02-28 07:44] LABS: Strep pneumo Urine Ag NEGATIVE (NEGATIVE)
[2022-02-28 07:52] LABS: Band 1 % (5-11); Lymphocytes 6 % (21-51); Monocytes 6 % (0-10); Neutrophil 87 % (42-75)
[2022-02-28 07:53] LABS: Platelet Morphology Comment Appears Adequate; RBC Morphology Normal
[2022-02-28] MEDS: Nystatin 500,000 UNITS/5 ML UDCUP SSW SCH ×4 (09:57→21:14)
[2022-02-28] MEDS: Tamsulosin HCl 0.4 MG CAP PO SCH (09:57)
[2022-02-28] MEDS: Baclofen 10 MG TAB PO SCH ×2 (09:58→21:14)
[2022-02-28] MEDS: Amlodipine 5 MG TAB PO SCH (09:58)
[2022-02-28] MEDS: Spironolactone 25 MG TAB PO SCH (09:58)
[2022-02-28] MEDS ORDERED: Piperacillin/Tazobactam 3.375 GM in Sodium Chloride 0.9% 100 ML IVPB SCH ×2 (10:28→14:00)
[2022-02-28] MEDS ORDERED: Vancomycin HCl 1.25 GM, Admixture Fee 1 EACH in Sodium Chloride 0.9% 250 ML 250 ML IVPB SCH (11:00)
[2022-02-28] MEDS: Acetaminophen 325 MG TAB PO PRN (16:44)
[2022-02-28] MEDS: Piperacillin/Tazobactam 3.375 GM in Sodium Chloride 0.9% 100 ML IVPB SCH (16:46)
[2022-02-28 17:21] LABS: Bilirubin Neg (Negative); Blood, Urine 150 (Negative); Clarity Clear (Clear); Glucose, Urine (Dipstick) Normal (Negative); Ketone, Urine Negative (Negative); Leukocyte Negative (Negative); Nitrite Negative (Negative); Protein, Urine (Dipstick) 30 mg/dl (Neg-Trace); Specific Gravity, Urine 1.015 (1.002-1.036); Urobilinogen Normal mg/dL (Less than 2)
[2022-02-28 17:39] LABS: Bacteria/HPF Rare-Few HPF (None Seen); Mucous/LPF Rare LPF (<2+); RBC/HPF 0-3 HPF (0-3); Squamous Epithelial 0-3 HPF (0-3); WBC/HPF None Seen HPF (0-3)
[2022-02-28 19:52] LABS: Legionella Urinary Ag Negative (Negative)
[2022-02-28] MEDS: Atorvastatin Calcium 40 MG TAB PO SCH (21:14)
[2022-02-28] MEDS: Lactated Ringer's 1,000 ML IV SCH (21:14)
[2022-02-28] MEDS: Dutasteride 0.5 MG CAP PO SCH (21:19)
[2022-02-28] MEDS: Vancomycin HCl 1 GM in Sodium Chloride 0.9% 250 ML 250 ML IVPB SCH (23:20)
[2022-03-01] MEDS: Piperacillin/Tazobactam 3.375 GM in Sodium Chloride 0.9% 100 ML IVPB SCH ×3 (01:48→16:49)
[2022-03-01 05:25] LABS: Hemoglobin 11.8 g/dL (13.5-17.5); Mean Corpuscular HGB CONC 34.2 g/dL (32.0-36.0); Mean Corpuscular Hemoglobin 29.6 pg (27.0-33.0); Mean Corpuscular Volume 86.7 fl (81.2-95.1); Mean Platelet Volume 9.8 fl (7.4-10.4); Platelet Count 364 10x3/uL (150-450); RBC Distribution Width 14.4 % (11.5-14.5); Red Blood Cell (RBC) Count 3.98 10x6/uL (4.32-5.72); White Blood Cell (WBC) Count 22.9 10x3/uL (3.5-10.5)
[2022-03-01 05:35] LABS: ALT (SGPT) 52 U/L (8-55); AST (SGOT) 27 U/L (5-34); Albumin 3.4 g/dL (3.4-4.8); Alkaline Phosphatase 58 U/L (40-110); Anion Gap 16 mmol/L (10-20); BUN (Urea Nitrogen) 29 mg/dL (8.4-25.7); Bilirubin, Total 0.6 mg/dL (0.2-1.2); Calc. Creatinine Clearance 71 mL/min (70-130); Carbon Dioxide 25 mmol/L (23-31); Chloride 98 mmol/L (98-107); Estimated GFR 78; Globulin 3.9 g/dL (2.4-3.5); Glucose 105 mg/dL (80-115); Magnesium 1.8 mg/dL (1.6-2.6); Phosphorus 3.3 mg/dL (2.3-4.7); Potassium 4.5 mmol/L (3.5-5.1); Protein, Total 7.3 g/dL (5.8-8.1); Sodium 134 mmol/L (136-145)
[2022-03-01] MEDS: Acetaminophen 325 MG TAB PO PRN ×2 (05:38→21:40)
[2022-03-01] MEDS ORDERED: Magnesium 2 GM/50 ML(in water) 2 GM in Premix Bag 1 BAG IVPB SCH (05:45)
[2022-03-01 07:06] LABS: MDiff Complete? YES; Platelet Morphology Comment Appears Adequate
[2022-03-01 07:08] LABS: Band 1 % (5-11); Eosinophils 2 % (0-10); Lymphocytes 5 % (21-51); Monocytes 10 % (0-10); Neutrophil 82 % (42-75)
[2022-03-01] MEDS: Amlodipine 5 MG TAB PO SCH (09:11)
[2022-03-01] MEDS: Baclofen 10 MG TAB PO SCH ×2 (09:11→21:40)
[2022-03-01] MEDS: Spironolactone 25 MG TAB PO SCH (09:11)
[2022-03-01] MEDS: Pantoprazole 40 MG VIAL IVP SCH (09:11)
[2022-03-01] MEDS: Nystatin 500,000 UNITS/5 ML UDCUP SSW SCH ×4 (09:12→21:41)
[2022-03-01] MEDS: Tamsulosin HCl 0.4 MG CAP PO SCH (09:12)
[2022-03-01] MEDS: Lactated Ringer's 1,000 ML IV SCH ×2 (09:45→15:38)
[2022-03-01] MEDS: Vancomycin HCl 1 GM in Sodium Chloride 0.9% 250 ML 250 ML IVPB SCH (11:47)
[2022-03-01] MEDS: Atorvastatin Calcium 40 MG TAB PO SCH (21:40)
[2022-03-01] MEDS: Dutasteride 0.5 MG CAP PO SCH (21:40)
[2022-03-02] MEDS: Piperacillin/Tazobactam 3.375 GM in Sodium Chloride 0.9% 100 ML IVPB SCH ×3 (04:34→16:41)
[2022-03-02 05:41] LABS: #Basophils 0.1 10x3/uL (0.0-0.2); #Eosinphils 0.2 10x3/uL (0.0-0.5); #Monocytes 1.5 10x3/uL (0.0-1.1); #Neutrophils 14.4 10x3/uL (1.5-8.4); %Basophils 0.4 % (0.0-2.0); %Eosinophils 1.2 % (0.0-6.0); %Lymphocytes 6.8 % (18.0-47.0); %Monocytes 8.7 % (0.0-10.0); %Neutrophils 81.5 % (40.0-75.0); Hemoglobin 11.1 g/dL (13.5-17.5); Mean Corpuscular HGB CONC 33.9 g/dL (32.0-36.0); Mean Corpuscular Hemoglobin 29.8 pg (27.0-33.0); Mean Corpuscular Volume 87.7 fl (81.2-95.1); Mean Platelet Volume 10.2 fl (7.4-10.4); Platelet Count 387 10x3/uL (150-450); RBC Distribution Width 14.4 % (11.5-14.5); Red Blood Cell (RBC) Count 3.73 10x6/uL (4.32-5.72); White Blood Cell (WBC) Count 17.7 10x3/uL (3.5-10.5)
[2022-03-02] MEDS: Acetaminophen 325 MG TAB PO PRN ×3 (05:47→22:04)
[2022-03-02 05:51] LABS: Sodium 136 mmol/L (136-145)
[2022-03-02 05:52] LABS: ALT (SGPT) 69 U/L (8-55); AST (SGOT) 52 U/L (5-34); Albumin 3.3 g/dL (3.4-4.8); Alkaline Phosphatase 57 U/L (40-110); Anion Gap 17 mmol/L (10-20); BUN (Urea Nitrogen) 26 mg/dL (8.4-25.7); Bilirubin, Total 0.5 mg/dL (0.2-1.2); Calc. Creatinine Clearance 69 mL/min (70-130); Calcium 9.7 mg/dL (7.8-10.44); Carbon Dioxide 25 mmol/L (23-31); Chloride 99 mmol/L (98-107); Estimated GFR 76; Globulin 3.8 g/dL (2.4-3.5); Glucose 91 mg/dL (80-115); Potassium 4.5 mmol/L (3.5-5.1); Protein, Total 7.1 g/dL (5.8-8.1)
[2022-03-02] MEDS: Amlodipine 5 MG TAB PO SCH (08:46)
[2022-03-02] MEDS: Nystatin 500,000 UNITS/5 ML UDCUP SSW SCH ×4 (08:46→21:20)
[2022-03-02] MEDS: Pantoprazole 40 MG VIAL IVP SCH (08:46)
[2022-03-02] MEDS: Tamsulosin HCl 0.4 MG CAP PO SCH (08:46)
[2022-03-02] MEDS: Baclofen 10 MG TAB PO SCH ×2 (08:47→21:13)
[2022-03-02] MEDS: Spironolactone 25 MG TAB PO SCH (08:47)
[2022-03-02] MEDS: Lactated Ringer's 1,000 ML IV SCH (10:02)
[2022-03-02] MEDS: Dutasteride 0.5 MG CAP PO SCH (21:13)
[2022-03-02] MEDS: Atorvastatin Calcium 40 MG TAB PO SCH (21:13)
[2022-03-03] MEDS: Lactated Ringer's 1,000 ML IV SCH ×2 (01:30→11:19)
[2022-03-03] MEDS: Piperacillin/Tazobactam 3.375 GM in Sodium Chloride 0.9% 100 ML IVPB SCH ×3 (02:56→16:47)
[2022-03-03 04:26] LABS: #Basophils 0.1 10x3/uL (0.0-0.2); #Eosinphils 0.2 10x3/uL (0.0-0.5); #Monocytes 1.7 10x3/uL (0.0-1.1); #Neutrophils 11.8 10x3/uL (1.5-8.4); %Basophils 0.3 % (0.0-2.0); %Eosinophils 1.1 % (0.0-6.0); %Lymphocytes 8.4 % (18.0-47.0); %Monocytes 11.2 % (0.0-10.0); %Neutrophils 77.8 % (40.0-75.0); Hemoglobin 10.2 g/dL (13.5-17.5); Mean Corpuscular HGB CONC 33.8 g/dL (32.0-36.0); Mean Corpuscular Hemoglobin 29.5 pg (27.0-33.0); Mean Corpuscular Volume 87.3 fl (81.2-95.1); Mean Platelet Volume 9.7 fl (7.4-10.4); Platelet Count 419 10x3/uL (150-450); RBC Distribution Width 14.2 % (11.5-14.5); Red Blood Cell (RBC) Count 3.46 10x6/uL (4.32-5.72); White Blood Cell (WBC) Count 15.1 10x3/uL (3.5-10.5)
[2022-03-03] MEDS: Acetaminophen 325 MG TAB PO PRN ×3 (04:36→20:50)
[2022-03-03 04:38] LABS: ALT (SGPT) 90 U/L (8-55); AST (SGOT) 67 U/L (5-34); Albumin 3.1 g/dL (3.4-4.8); Alkaline Phosphatase 54 U/L (40-110); Anion Gap 16 mmol/L (10-20); BUN (Urea Nitrogen) 27 mg/dL (8.4-25.7); Bilirubin, Total 0.4 mg/dL (0.2-1.2); Calc. Creatinine Clearance 79 mL/min (70-130); Calcium 9.4 mg/dL (7.8-10.44); Carbon Dioxide 24 mmol/L (23-31); Chloride 101 mmol/L (98-107); Estimated GFR 89; Globulin 3.7 g/dL (2.4-3.5); Glucose 104 mg/dL (80-115); Potassium 4.3 mmol/L (3.5-5.1); Protein, Total 6.8 g/dL (5.8-8.1); Sodium 137 mmol/L (136-145)
[2022-03-03] MEDS: Amlodipine 5 MG TAB PO SCH (08:29)
[2022-03-03] MEDS: Spironolactone 25 MG TAB PO SCH (08:29)
[2022-03-03] MEDS: Nystatin 500,000 UNITS/5 ML UDCUP SSW SCH ×4 (08:29→21:26)
[2022-03-03] MEDS: Baclofen 10 MG TAB PO SCH ×2 (08:30→21:26)
[2022-03-03] MEDS: Tamsulosin HCl 0.4 MG CAP PO SCH (08:30)
[2022-03-03] MEDS: Atorvastatin Calcium 40 MG TAB PO SCH (21:26)
[2022-03-03] MEDS: Dutasteride 0.5 MG CAP PO SCH (21:26)
[2022-03-04] MEDS: Piperacillin/Tazobactam 3.375 GM in Sodium Chloride 0.9% 100 ML IVPB SCH ×3 (01:25→16:57)
[2022-03-04 04:51] LABS: ALT (SGPT) 91 U/L (8-55); AST (SGOT) 64 U/L (5-34); Albumin 3.1 g/dL (3.4-4.8); Alkaline Phosphatase 55 U/L (40-110); Anion Gap 13 mmol/L (10-20); BUN (Urea Nitrogen) 20 mg/dL (8.4-25.7); Bilirubin, Total 0.4 mg/dL (0.2-1.2); Calc. Creatinine Clearance 77 mL/min (70-130); Calcium 9.5 mg/dL (7.8-10.44); Carbon Dioxide 25 mmol/L (23-31); Chloride 102 mmol/L (98-107); Estimated GFR 82; Globulin 3.7 g/dL (2.4-3.5); Glucose 97 mg/dL (80-115); Protein, Total 6.8 g/dL (5.8-8.1); Sodium 136 mmol/L (136-145)
[2022-03-04] MEDS: Acetaminophen 325 MG TAB PO PRN ×3 (04:52→21:56)
[2022-03-04] MEDS: Lactated Ringer's 1,000 ML IV SCH ×2 (04:53→14:14)
[2022-03-04 04:58] LABS: #Basophils 0.1 10x3/uL (0.0-0.2); #Eosinphils 0.1 10x3/uL (0.0-0.5); #Monocytes 1.6 10x3/uL (0.0-1.1); #Neutrophils 11.6 10x3/uL (1.5-8.4); %Basophils 0.5 % (0.0-2.0); %Eosinophils 0.7 % (0.0-6.0); %Lymphocytes 8.8 % (18.0-47.0); %Monocytes 10.7 % (0.0-10.0); %Neutrophils 78.4 % (40.0-75.0); Hemoglobin 10.1 g/dL (13.5-17.5); Mean Corpuscular HGB CONC 34.2 g/dL (32.0-36.0); Mean Corpuscular Hemoglobin 29.6 pg (27.0-33.0); Mean Corpuscular Volume 86.5 fl (81.2-95.1); Mean Platelet Volume 9.7 fl (7.4-10.4); Platelet Count 421 10x3/uL (150-450); RBC Distribution Width 14.5 % (11.5-14.5); Red Blood Cell (RBC) Count 3.41 10x6/uL (4.32-5.72); White Blood Cell (WBC) Count 14.8 10x3/uL (3.5-10.5)
[2022-03-04] MEDS: Nystatin 500,000 UNITS/5 ML UDCUP SSW SCH ×4 (09:31→21:56)
[2022-03-04] MEDS: Tamsulosin HCl 0.4 MG CAP PO SCH (09:31)
[2022-03-04] MEDS: Baclofen 10 MG TAB PO SCH ×2 (09:32→21:56)
[2022-03-04] MEDS: Spironolactone 25 MG TAB PO SCH (09:32)
[2022-03-04] MEDS: Amlodipine 5 MG TAB PO SCH (09:32)
[2022-03-04] MEDS: Atorvastatin Calcium 40 MG TAB PO SCH (21:56)
[2022-03-04] MEDS: Dutasteride 0.5 MG CAP PO SCH (21:57)
[2022-03-05] MEDS: Lactated Ringer's 1,000 ML IV SCH ×3 (01:03→23:51)
[2022-03-05] MEDS: Piperacillin/Tazobactam 3.375 GM in Sodium Chloride 0.9% 100 ML IVPB SCH ×3 (01:29→17:02)
[2022-03-05 04:46] LABS: #Basophils 0.1 10x3/uL (0.0-0.2); #Eosinphils 0.1 10x3/uL (0.0-0.5); #Monocytes 1.4 10x3/uL (0.0-1.1); #Neutrophils 11.4 10x3/uL (1.5-8.4); %Basophils 0.5 % (0.0-2.0); %Eosinophils 0.9 % (0.0-6.0); %Monocytes 9.4 % (0.0-10.0); %Neutrophils 76.2 % (40.0-75.0); Hemoglobin 11.1 g/dL (13.5-17.5); Mean Corpuscular HGB CONC 34.3 g/dL (32.0-36.0); Mean Corpuscular Hemoglobin 29.6 pg (27.0-33.0); Mean Corpuscular Volume 86.4 fl (81.2-95.1); Mean Platelet Volume 9.3 fl (7.4-10.4); Platelet Count 473 10x3/uL (150-450); RBC Distribution Width 14.5 % (11.5-14.5); Red Blood Cell (RBC) Count 3.75 10x6/uL (4.32-5.72)
[2022-03-05 05:01] LABS: ALT (SGPT) 124 U/L (8-55); AST (SGOT) 91 U/L (5-34); Albumin 3.3 g/dL (3.4-4.8); Alkaline Phosphatase 73 U/L (40-110); Anion Gap 15 mmol/L (10-20); BUN (Urea Nitrogen) 19 mg/dL (8.4-25.7); Bilirubin, Total 0.5 mg/dL (0.2-1.2); Calc. Creatinine Clearance 73 mL/min (70-130); Calcium 9.9 mg/dL (7.8-10.44); Carbon Dioxide 26 mmol/L (23-31); Chloride 102 mmol/L (98-107); Estimated GFR 76; Globulin 4.6 g/dL (2.4-3.5); Glucose 96 mg/dL (80-115); Potassium 4.2 mmol/L (3.5-5.1); Protein, Total 7.9 g/dL (5.8-8.1); Sodium 139 mmol/L (136-145)
[2022-03-05] MEDS: Nystatin 500,000 UNITS/5 ML UDCUP SSW SCH ×4 (08:47→20:44)
[2022-03-05] MEDS: Amlodipine 5 MG TAB PO SCH (08:47)
[2022-03-05] MEDS: Baclofen 10 MG TAB PO SCH ×2 (08:48→20:43)
[2022-03-05] MEDS: Spironolactone 25 MG TAB PO SCH (08:48)
[2022-03-05] MEDS: Tamsulosin HCl 0.4 MG CAP PO SCH (08:48)
[2022-03-05] MEDS: METHYLPHENIDATE 5 MG PO SCH (18:03)
[2022-03-05] MEDS: Atorvastatin Calcium 40 MG TAB PO SCH (20:43)
[2022-03-05] MEDS: Dutasteride 0.5 MG CAP PO SCH (20:53)
[2022-03-05] MEDS: Acetaminophen 325 MG TAB PO PRN (23:52)
[2022-03-06] MEDS: Piperacillin/Tazobactam 3.375 GM in Sodium Chloride 0.9% 100 ML IVPB SCH ×3 (01:30→18:29)
[2022-03-06 05:50] LABS: #Basophils 0.1 10x3/uL (0.0-0.2); #Eosinphils 0.2 10x3/uL (0.0-0.5); #Neutrophils 6.9 10x3/uL (1.5-8.4); %Basophils 0.5 % (0.0-2.0); %Eosinophils 1.9 % (0.0-6.0); %Monocytes 9.6 % (0.0-10.0); %Neutrophils 69.9 % (40.0-75.0); Hemoglobin 9.7 g/dL (13.5-17.5); Mean Corpuscular HGB CONC 34.3 g/dL (32.0-36.0); Mean Corpuscular Hemoglobin 29.6 pg (27.0-33.0); Mean Corpuscular Volume 86.3 fl (81.2-95.1); Mean Platelet Volume 9.6 fl (7.4-10.4); Platelet Count 466 10x3/uL (150-450); RBC Distribution Width 14.6 % (11.5-14.5); Red Blood Cell (RBC) Count 3.28 10x6/uL (4.32-5.72); White Blood Cell (WBC) Count 9.9 10x3/uL (3.5-10.5)
[2022-03-06 06:06] LABS: ALT (SGPT) 171 U/L (8-55); AST (SGOT) 135 U/L (5-34); Albumin 2.9 g/dL (3.4-4.8); Alkaline Phosphatase 62 U/L (40-110); Anion Gap 15 mmol/L (10-20); BUN (Urea Nitrogen) 20 mg/dL (8.4-25.7); Bilirubin, Total 0.3 mg/dL (0.2-1.2); Calc. Creatinine Clearance 71 mL/min (70-130); Calcium 9.4 mg/dL (7.8-10.44); Carbon Dioxide 25 mmol/L (23-31); Chloride 103 mmol/L (98-107); Estimated GFR 79; Globulin 4.1 g/dL (2.4-3.5); Glucose 91 mg/dL (80-115); Potassium 3.9 mmol/L (3.5-5.1); Sodium 139 mmol/L (136-145)
[2022-03-06] MEDS: METHYLPHENIDATE 5 MG PO SCH (06:10)
[2022-03-06] MEDS: Spironolactone 25 MG TAB PO SCH (10:14)
[2022-03-06] MEDS: Nystatin 500,000 UNITS/5 ML UDCUP SSW SCH ×4 (10:14→20:03)
[2022-03-06] MEDS: Tamsulosin HCl 0.4 MG CAP PO SCH (10:15)
[2022-03-06] MEDS: Baclofen 10 MG TAB PO SCH ×2 (10:15→20:03)
[2022-03-06] MEDS: Amlodipine 5 MG TAB PO SCH (10:16)
[2022-03-06] MEDS: Acetaminophen 325 MG TAB PO PRN ×2 (10:17→20:03)
[2022-03-06] MEDS: Dutasteride 0.5 MG CAP PO SCH (20:03)
[2022-03-06] MEDS: Atorvastatin Calcium 40 MG TAB PO SCH (20:03)
[2022-03-06] MEDS: Lactated Ringer's 1,000 ML IV SCH (20:39)
[2022-03-07] MEDS: Piperacillin/Tazobactam 3.375 GM in Sodium Chloride 0.9% 100 ML IVPB SCH ×3 (02:17→17:37)
[2022-03-07 04:50] LABS: ALT (SGPT) 158 U/L (8-55); AST (SGOT) 91 U/L (5-34); Alkaline Phosphatase 61 U/L (40-110); Anion Gap 14 mmol/L (10-20); BUN (Urea Nitrogen) 20 mg/dL (8.4-25.7); Bilirubin, Total 0.3 mg/dL (0.2-1.2); Calc. Creatinine Clearance 77 mL/min (70-130); Calcium 9.4 mg/dL (7.8-10.44); Carbon Dioxide 25 mmol/L (23-31); Chloride 104 mmol/L (98-107); Estimated GFR 87; Glucose 87 mg/dL (80-115); Sodium 139 mmol/L (136-145)
[2022-03-07 05:27] LABS: #Basophils 0.1 10x3/uL (0.0-0.2); #Eosinphils 0.2 10x3/uL (0.0-0.5); #Monocytes 0.9 10x3/uL (0.0-1.1); #Neutrophils 6.9 10x3/uL (1.5-8.4); %Basophils 0.8 % (0.0-2.0); %Eosinophils 2.3 % (0.0-6.0); %Lymphocytes 19.6 % (18.0-47.0); %Monocytes 8.6 % (0.0-10.0); %Neutrophils 67.5 % (40.0-75.0); Hemoglobin 10.1 g/dL (13.5-17.5); Mean Corpuscular HGB CONC 33.9 g/dL (32.0-36.0); Mean Corpuscular Hemoglobin 29.4 pg (27.0-33.0); Mean Corpuscular Volume 86.6 fl (81.2-95.1); Mean Platelet Volume 9.6 fl (7.4-10.4); Platelet Count 501 10x3/uL (150-450); RBC Distribution Width 14.6 % (11.5-14.5); Red Blood Cell (RBC) Count 3.44 10x6/uL (4.32-5.72); White Blood Cell (WBC) Count 10.2 10x3/uL (3.5-10.5)
[2022-03-07] MEDS: Acetaminophen 325 MG TAB PO PRN ×2 (09:45→21:35)
[2022-03-07] MEDS: Spironolactone 25 MG TAB PO SCH (09:46)
[2022-03-07] MEDS: Nystatin 500,000 UNITS/5 ML UDCUP SSW SCH ×4 (09:46→21:35)
[2022-03-07] MEDS: Amlodipine 5 MG TAB PO SCH (09:47)
[2022-03-07] MEDS: Tamsulosin HCl 0.4 MG CAP PO SCH (09:47)
[2022-03-07] MEDS: Baclofen 10 MG TAB PO SCH ×2 (09:48→21:35)
[2022-03-07] MEDS: Lactated Ringer's 1,000 ML IV SCH (12:09)
[2022-03-07] MEDS: Atorvastatin Calcium 40 MG TAB PO SCH (21:35)
[2022-03-07] MEDS: Dutasteride 0.5 MG CAP PO SCH (21:36)
[2022-03-08] MEDS: Lactated Ringer's 1,000 ML IV SCH ×2 (01:26→13:19)
[2022-03-08] MEDS: Piperacillin/Tazobactam 3.375 GM in Sodium Chloride 0.9% 100 ML IVPB SCH ×3 (02:10→17:35)
[2022-03-08 03:59] LABS: #Basophils 0.1 10x3/uL (0.0-0.2); #Eosinphils 0.2 10x3/uL (0.0-0.5); #Monocytes 0.8 10x3/uL (0.0-1.1); #Neutrophils 6.1 10x3/uL (1.5-8.4); %Basophils 0.5 % (0.0-2.0); %Eosinophils 2.2 % (0.0-6.0); %Lymphocytes 19.8 % (18.0-47.0); %Neutrophils 67.4 % (40.0-75.0); Hemoglobin 9.7 g/dL (13.5-17.5); Mean Corpuscular HGB CONC 33.8 g/dL (32.0-36.0); Mean Corpuscular Volume 85.7 fl (81.2-95.1); Mean Platelet Volume 9.3 fl (7.4-10.4); Platelet Count 507 10x3/uL (150-450); RBC Distribution Width 14.4 % (11.5-14.5); Red Blood Cell (RBC) Count 3.35 10x6/uL (4.32-5.72); White Blood Cell (WBC) Count 9.1 10x3/uL (3.5-10.5)
[2022-03-08 04:10] LABS: ALT (SGPT) 114 U/L (8-55); AST (SGOT) 45 U/L (5-34); Alkaline Phosphatase 57 U/L (40-110); Anion Gap 14 mmol/L (10-20); BUN (Urea Nitrogen) 19 mg/dL (8.4-25.7); Bilirubin, Total 0.3 mg/dL (0.2-1.2); Calc. Creatinine Clearance 74 mL/min (70-130); Calcium 9.6 mg/dL (7.8-10.44); Carbon Dioxide 25 mmol/L (23-31); Chloride 103 mmol/L (98-107); Estimated GFR 81; Globulin 4.1 g/dL (2.4-3.5); Glucose 93 mg/dL (80-115); Potassium 3.9 mmol/L (3.5-5.1); Protein, Total 7.1 g/dL (5.8-8.1); Sodium 138 mmol/L (136-145)
[2022-03-08] MEDS: Nystatin 500,000 UNITS/5 ML UDCUP SSW SCH ×4 (08:38→20:26)
[2022-03-08] MEDS: Tamsulosin HCl 0.4 MG CAP PO SCH (08:38)
[2022-03-08] MEDS: Spironolactone 25 MG TAB PO SCH (08:38)
[2022-03-08] MEDS: Amlodipine 5 MG TAB PO SCH (08:38)
[2022-03-08] MEDS: Baclofen 10 MG TAB PO SCH ×2 (08:38→20:26)
[2022-03-08] MEDS: Atorvastatin Calcium 40 MG TAB PO SCH (20:26)
[2022-03-08] MEDS: Dutasteride 0.5 MG CAP PO SCH (22:30)
[2022-03-09 04:19] LABS: ALT (SGPT) 84 U/L (8-55); AST (SGOT) 31 U/L (5-34); Alkaline Phosphatase 53 U/L (40-110); Anion Gap 15 mmol/L (10-20); BUN (Urea Nitrogen) 19 mg/dL (8.4-25.7); Bilirubin, Total 0.3 mg/dL (0.2-1.2); Calc. Creatinine Clearance 78 mL/min (70-130); Calcium 9.3 mg/dL (7.8-10.44); Carbon Dioxide 23 mmol/L (23-31); Chloride 105 mmol/L (98-107); Estimated GFR 87; Globulin 3.8 g/dL (2.4-3.5); Glucose 97 mg/dL (80-115); Potassium 3.8 mmol/L (3.5-5.1); Protein, Total 6.8 g/dL (5.8-8.1); Sodium 139 mmol/L (136-145)
[2022-03-09 04:25] LABS: #Basophils 0.1 10x3/uL (0.0-0.2); #Eosinphils 0.2 10x3/uL (0.0-0.5); #Monocytes 0.9 10x3/uL (0.0-1.1); #Neutrophils 6.5 10x3/uL (1.5-8.4); %Basophils 0.5 % (0.0-2.0); %Lymphocytes 19.1 % (18.0-47.0); %Monocytes 9.6 % (0.0-10.0); %Neutrophils 67.2 % (40.0-75.0); Hemoglobin 9.4 g/dL (13.5-17.5); Mean Corpuscular HGB CONC 34.2 g/dL (32.0-36.0); Mean Corpuscular Hemoglobin 29.3 pg (27.0-33.0); Mean Corpuscular Volume 85.7 fl (81.2-95.1); Mean Platelet Volume 9.4 fl (7.4-10.4); Platelet Count 479 10x3/uL (150-450); RBC Distribution Width 14.1 % (11.5-14.5); Red Blood Cell (RBC) Count 3.21 10x6/uL (4.32-5.72); White Blood Cell (WBC) Count 9.6 10x3/uL (3.5-10.5)
[2022-03-09] MEDS: Piperacillin/Tazobactam 3.375 GM in Sodium Chloride 0.9% 100 ML IVPB SCH ×2 (04:45→08:54)
[2022-03-09] MEDS: Lactated Ringer's 1,000 ML IV SCH (04:47)
[2022-03-09] MEDS: Amlodipine 5 MG TAB PO SCH (08:53)
[2022-03-09] MEDS: Tamsulosin HCl 0.4 MG CAP PO SCH (08:54)
[2022-03-09] MEDS: Spironolactone 25 MG TAB PO SCH (08:54)
[2022-03-09] MEDS: Nystatin 500,000 UNITS/5 ML UDCUP SSW SCH ×4 (08:54→22:02)
[2022-03-09] MEDS: Baclofen 10 MG TAB PO SCH ×2 (08:54→21:57)
[2022-03-09] MEDS: Dutasteride 0.5 MG CAP PO SCH (21:57)
[2022-03-09] MEDS: Atorvastatin Calcium 40 MG TAB PO SCH (21:57)
[2022-03-10 04:09] LABS: #Basophils 0.1 10x3/uL (0.0-0.2); #Eosinphils 0.3 10x3/uL (0.0-0.5); #Neutrophils 7.7 10x3/uL (1.5-8.4); %Basophils 0.6 % (0.0-2.0); %Eosinophils 2.3 % (0.0-6.0); %Lymphocytes 18.1 % (18.0-47.0); %Monocytes 8.8 % (0.0-10.0); Hemoglobin 9.6 g/dL (13.5-17.5); Mean Corpuscular Hemoglobin 29.8 pg (27.0-33.0); Mean Corpuscular Volume 87.6 fl (81.2-95.1); Mean Platelet Volume 9.3 fl (7.4-10.4); Platelet Count 486 10x3/uL (150-450); RBC Distribution Width 14.2 % (11.5-14.5); Red Blood Cell (RBC) Count 3.22 10x6/uL (4.32-5.72); White Blood Cell (WBC) Count 11.4 10x3/uL (3.5-10.5)
[2022-03-10 04:25] LABS: ALT (SGPT) 78 U/L (8-55); AST (SGOT) 35 U/L (5-34); Alkaline Phosphatase 58 U/L (40-110); Anion Gap 14 mmol/L (10-20); BUN (Urea Nitrogen) 20 mg/dL (8.4-25.7); Bilirubin, Total 0.2 mg/dL (0.2-1.2); Calc. Creatinine Clearance 80 mL/min (70-130); Calcium 9.6 mg/dL (7.8-10.44); Carbon Dioxide 24 mmol/L (23-31); Chloride 105 mmol/L (98-107); Estimated GFR 90; Glucose 107 mg/dL (80-115); Potassium 3.8 mmol/L (3.5-5.1); Sodium 139 mmol/L (136-145)
[2022-03-10] MEDS: Amlodipine 5 MG TAB PO SCH ×2 (10:23→12:12)
[2022-03-10] MEDS: Nystatin 500,000 UNITS/5 ML UDCUP SSW SCH ×4 (10:23→20:49)
[2022-03-10] MEDS: Spironolactone 25 MG TAB PO SCH ×2 (10:23→12:12)
[2022-03-10] MEDS: Baclofen 10 MG TAB PO SCH ×2 (10:23→20:48)
[2022-03-10] MEDS: Tamsulosin HCl 0.4 MG CAP PO SCH (10:23)
[2022-03-10] MEDS: Atorvastatin Calcium 40 MG TAB PO SCH (20:47)
[2022-03-10] MEDS: Acetaminophen 325 MG TAB PO PRN (20:48)
[2022-03-10] MEDS: Dutasteride 0.5 MG CAP PO SCH (20:50)
[2022-03-11 04:08] LABS: ALT (SGPT) 70 U/L (8-55); AST (SGOT) 29 U/L (5-34); Albumin 3.1 g/dL (3.4-4.8); Alkaline Phosphatase 57 U/L (40-110); Anion Gap 14 mmol/L (10-20); BUN (Urea Nitrogen) 24 mg/dL (8.4-25.7); Bilirubin, Total 0.2 mg/dL (0.2-1.2); Calc. Creatinine Clearance 81 mL/min (70-130); Calcium 9.8 mg/dL (7.8-10.44); Carbon Dioxide 24 mmol/L (23-31); Chloride 105 mmol/L (98-107); Estimated GFR 89; Globulin 4.1 g/dL (2.4-3.5); Glucose 97 mg/dL (80-115); Potassium 3.7 mmol/L (3.5-5.1); Protein, Total 7.2 g/dL (5.8-8.1); Sodium 139 mmol/L (136-145)
[2022-03-11 04:11] LABS: #Basophils 0.1 10x3/uL (0.0-0.2); #Eosinphils 0.3 10x3/uL (0.0-0.5); #Neutrophils 6.3 10x3/uL (1.5-8.4); %Basophils 0.7 % (0.0-2.0); %Eosinophils 2.5 % (0.0-6.0); %Monocytes 9.6 % (0.0-10.0); %Neutrophils 64.1 % (40.0-75.0); Hemoglobin 10.1 g/dL (13.5-17.5); Mean Corpuscular HGB CONC 33.9 g/dL (32.0-36.0); Mean Corpuscular Hemoglobin 29.4 pg (27.0-33.0); Mean Corpuscular Volume 86.6 fl (81.2-95.1); Mean Platelet Volume 9.3 fl (7.4-10.4); Platelet Count 453 10x3/uL (150-450); RBC Distribution Width 14.6 % (11.5-14.5); Red Blood Cell (RBC) Count 3.44 10x6/uL (4.32-5.72); White Blood Cell (WBC) Count 9.9 10x3/uL (3.5-10.5)
[2022-03-11 05:57] VITALS: BMI 23.2
[2022-03-11] MEDS: Tamsulosin HCl 0.4 MG CAP PO SCH (09:53)
[2022-03-11] MEDS: Baclofen 10 MG TAB PO SCH ×2 (09:53→21:46)
[2022-03-11] MEDS: Nystatin 500,000 UNITS/5 ML UDCUP SSW SCH ×4 (09:54→21:46)
[2022-03-11] MEDS: Spironolactone 25 MG TAB PO SCH (09:54)
[2022-03-11] MEDS: Atorvastatin Calcium 40 MG TAB PO SCH (21:46)
[2022-03-11] MEDS: Dutasteride 0.5 MG CAP PO SCH (21:46)
[2022-03-12 04:09] LABS: #Basophils 0.1 10x3/uL (0.0-0.2); #Eosinphils 0.3 10x3/uL (0.0-0.5); #Monocytes 0.8 10x3/uL (0.0-1.1); #Neutrophils 5.9 10x3/uL (1.5-8.4); %Basophils 0.9 % (0.0-2.0); %Eosinophils 2.8 % (0.0-6.0); %Lymphocytes 21.4 % (18.0-47.0); %Monocytes 8.8 % (0.0-10.0); %Neutrophils 63.6 % (40.0-75.0); Hemoglobin 10.3 g/dL (13.5-17.5); Mean Corpuscular Hemoglobin 29.2 pg (27.0-33.0); Mean Corpuscular Volume 85.8 fl (81.2-95.1); Mean Platelet Volume 9.3 fl (7.4-10.4); Platelet Count 430 10x3/uL (150-450); RBC Distribution Width 14.4 % (11.5-14.5); Red Blood Cell (RBC) Count 3.53 10x6/uL (4.32-5.72); White Blood Cell (WBC) Count 9.3 10x3/uL (3.5-10.5)
[2022-03-12 04:28] LABS: ALT (SGPT) 61 U/L (8-55); AST (SGOT) 27 U/L (5-34); Albumin 3.2 g/dL (3.4-4.8); Alkaline Phosphatase 65 U/L (40-110); Anion Gap 14 mmol/L (10-20); BUN (Urea Nitrogen) 22 mg/dL (8.4-25.7); Bilirubin, Total 0.2 mg/dL (0.2-1.2); Calc. Creatinine Clearance 71 mL/min (70-130); Calcium 9.9 mg/dL (7.8-10.44); Carbon Dioxide 23 mmol/L (23-31); Chloride 106 mmol/L (98-107); Estimated GFR 78; Glucose 89 mg/dL (80-115); Potassium 3.9 mmol/L (3.5-5.1); Protein, Total 7.2 g/dL (5.8-8.1); Sodium 139 mmol/L (136-145)
[2022-03-12] MEDS: Tamsulosin HCl 0.4 MG CAP PO SCH (09:58)
[2022-03-12] MEDS: Nystatin 500,000 UNITS/5 ML UDCUP SSW SCH ×4 (09:58→21:50)
[2022-03-12] MEDS: Spironolactone 25 MG TAB PO SCH (09:58)
[2022-03-12] MEDS: Baclofen 10 MG TAB PO SCH ×2 (09:58→21:49)
[2022-03-12] MEDS: Atorvastatin Calcium 40 MG TAB PO SCH (21:50)
[2022-03-12] MEDS: Dutasteride 0.5 MG CAP PO SCH (21:50)
[2022-03-13 06:49] LABS: ALT (SGPT) 55 U/L (8-55); AST (SGOT) 26 U/L (5-34); Albumin 3.2 g/dL (3.4-4.8); Alkaline Phosphatase 63 U/L (40-110); Anion Gap 15 mmol/L (10-20); BUN (Urea Nitrogen) 22 mg/dL (8.4-25.7); Bilirubin, Total 0.2 mg/dL (0.2-1.2); Calc. Creatinine Clearance 74 mL/min (70-130); Calcium 9.5 mg/dL (7.8-10.44); Carbon Dioxide 22 mmol/L (23-31); Chloride 106 mmol/L (98-107); Estimated GFR 82; Glucose 97 mg/dL (80-115); Potassium 3.8 mmol/L (3.5-5.1); Protein, Total 7.2 g/dL (5.8-8.1); Sodium 139 mmol/L (136-145)
[2022-03-13 06:50] LABS: #Basophils 0.1 10x3/uL (0.0-0.2); #Eosinphils 0.4 10x3/uL (0.0-0.5); #Neutrophils 6.7 10x3/uL (1.5-8.4); %Basophils 0.9 % (0.0-2.0); %Eosinophils 3.8 % (0.0-6.0); %Lymphocytes 19.4 % (18.0-47.0); %Monocytes 9.2 % (0.0-10.0); %Neutrophils 64.2 % (40.0-75.0); Hemoglobin 10.5 g/dL (13.5-17.5); Mean Corpuscular HGB CONC 33.8 g/dL (32.0-36.0); Mean Corpuscular Hemoglobin 29.7 pg (27.0-33.0); Mean Corpuscular Volume 87.9 fl (81.2-95.1); Mean Platelet Volume 9.4 fl (7.4-10.4); Platelet Count 417 10x3/uL (150-450); RBC Distribution Width 14.5 % (11.5-14.5); Red Blood Cell (RBC) Count 3.54 10x6/uL (4.32-5.72); White Blood Cell (WBC) Count 10.4 10x3/uL (3.5-10.5)
[2022-03-13] MEDS: Nystatin 500,000 UNITS/5 ML UDCUP SSW SCH (09:08)
[2022-03-13] MEDS: Baclofen 10 MG TAB PO SCH ×2 (09:08→21:14)
[2022-03-13] MEDS: Spironolactone 25 MG TAB PO SCH (09:09)
[2022-03-13] MEDS: Tamsulosin HCl 0.4 MG CAP PO SCH (09:09)
[2022-03-13] MEDS: Acetaminophen 325 MG TAB PO PRN (09:40)
[2022-03-13] MEDS: Dutasteride 0.5 MG CAP PO SCH (21:14)
[2022-03-13] MEDS: Atorvastatin Calcium 40 MG TAB PO SCH (21:14)
[2022-03-14 04:28] LABS: #Basophils 0.1 10x3/uL (0.0-0.2); #Eosinphils 0.4 10x3/uL (0.0-0.5); #Monocytes 1.1 10x3/uL (0.0-1.1); #Neutrophils 7.8 10x3/uL (1.5-8.4); %Basophils 0.8 % (0.0-2.0); %Eosinophils 3.5 % (0.0-6.0); %Lymphocytes 17.3 % (18.0-47.0); %Monocytes 9.1 % (0.0-10.0); %Neutrophils 67.3 % (40.0-75.0); Hemoglobin 10.9 g/dL (13.5-17.5); Mean Corpuscular HGB CONC 33.4 g/dL (32.0-36.0); Mean Corpuscular Hemoglobin 29.1 pg (27.0-33.0); Mean Corpuscular Volume 86.9 fl (81.2-95.1); Mean Platelet Volume 9.4 fl (7.4-10.4); Platelet Count 396 10x3/uL (150-450); RBC Distribution Width 14.9 % (11.5-14.5); Red Blood Cell (RBC) Count 3.75 10x6/uL (4.32-5.72); White Blood Cell (WBC) Count 11.5 10x3/uL (3.5-10.5)
[2022-03-14 04:33] LABS: ALT (SGPT) 50 U/L (8-55); AST (SGOT) 22 U/L (5-34); Albumin 3.3 g/dL (3.4-4.8); Alkaline Phosphatase 66 U/L (40-110); Anion Gap 14 mmol/L (10-20); BUN (Urea Nitrogen) 24 mg/dL (8.4-25.7); Bilirubin, Total 0.2 mg/dL (0.2-1.2); Calc. Creatinine Clearance 77 mL/min (70-130); Calcium 9.6 mg/dL (7.8-10.44); Carbon Dioxide 24 mmol/L (23-31); Chloride 103 mmol/L (98-107); Estimated GFR 86; Glucose 103 mg/dL (80-115); Potassium 4.1 mmol/L (3.5-5.1); Protein, Total 7.3 g/dL (5.8-8.1); Sodium 137 mmol/L (136-145)
[2022-03-14] MEDS: Tamsulosin HCl 0.4 MG CAP PO SCH (11:19)
[2022-03-14] MEDS: Spironolactone 25 MG TAB PO SCH (11:20)
[2022-03-14] MEDS: Baclofen 10 MG TAB PO SCH ×2 (11:20→22:02)
[2022-03-14] MEDS: Acetaminophen 325 MG TAB PO PRN ×2 (11:40→18:14)
[2022-03-14] MEDS: Dutasteride 0.5 MG CAP PO SCH (22:02)
[2022-03-14] MEDS: Atorvastatin Calcium 40 MG TAB PO SCH (22:02)
[2022-03-15] MEDS: Acetaminophen 325 MG TAB PO PRN ×2 (00:04→06:58)
[2022-03-15] MEDS: Spironolactone 25 MG TAB PO SCH (09:25)
[2022-03-15] MEDS: Tamsulosin HCl 0.4 MG CAP PO SCH (09:25)
[2022-03-15] MEDS: Baclofen 10 MG TAB PO SCH (09:25)
[2022-03-15 11:35] VITALS: BP 113/56; TEMP 97.6
== END 2022-03-15 13:23 | DRG 870 ==
LOC: CSHERS 13:39 → CSHIMCU 19:30 → CSHTELE 02-23 15:39
PROVIDERS: ADMIT Student in an Organized Health Care Education/Training Program; ATTEND Family Medicine
PROC: 5A1955Z Respiratory Ventilation, Greater than 96 Consecutive Hours (ICD-10-PCS; principal; 2022-02-17)
PROC: 0BH18EZ Insertion of Endotracheal Airway into Trachea, Via Natural or Artificial Opening Endoscopic (ICD-10-PCS; 2022-02-17)
PROC: 02HV33Z Insertion of Infusion Device into Superior Vena Cava, Percutaneous Approach (ICD-10-PCS; 2022-02-17)
PROC: B548ZZA Ultrasonography of Superior Vena Cava, Guidance (ICD-10-PCS; 2022-02-17)
PROC: 0D9670Z Drainage of Stomach with Drainage Device, Via Natural or Artificial Opening (ICD-10-PCS; 2022-02-17)
PROC: 3E03329 Introduction of Other Anti-infective into Peripheral Vein, Percutaneous Approach (ICD-10-PCS; 2022-02-17)
PROC: 4A10X4Z Monitoring of Central Nervous Electrical Activity, External Approach (ICD-10-PCS; 2022-02-20)
DX: A41.51 Sepsis due to Escherichia coli [E. coli] (principal); J96.01 Acute respiratory failure with hypoxia; J69.0 Pneumonitis due to inhalation of food and vomit; G92.8 Other toxic encephalopathy; I69.351 Hemiplegia and hemiparesis following cerebral infarction affecting right dominant side; E87.2 Acidosis; N17.9 Acute kidney failure, unspecified; E87.0 Hyperosmolality and hypernatremia; L03.115 Cellulitis of right lower limb; M62.82 Rhabdomyolysis; Z16.24 Resistance to multiple antibiotics; K92.2 Gastrointestinal hemorrhage, unspecified; E78.5 Hyperlipidemia, unspecified; N40.0 Benign prostatic hyperplasia without lower urinary tract symptoms; F98.8 Other specified behavioral and emotional disorders with onset usually occurring in childhood and adolescence; E78.00 Pure hypercholesterolemia, unspecified; F15.10 Other stimulant abuse, uncomplicated; Z66 Do not resuscitate; E87.6 Hypokalemia; E05.90 Thyrotoxicosis, unspecified without thyrotoxic crisis or storm; D69.6 Thrombocytopenia, unspecified; E78.2 Mixed hyperlipidemia; N18.30 Chronic kidney disease, stage 3 unspecified; Z20.822 Contact with and (suspected) exposure to COVID-19; R65.20 Severe sepsis without septic shock; Z88.8 Allergy status to other drugs, medicaments and biological substances; Z79.899 Other long term (current) drug therapy
CPT/HCPCS: 31500; 36415; 36416; 36556; 36600; 70450; 70551; 71045; 71260; 72125; 74177; 80053; 80202; 80306; 80307; 81001; 81003; 81015; 82140; 82550; 82805; 83605; 83690; 83735; 83880; 84100; 84133; 84145; 84300; 84439; 84443; 84481; 84484; 85025; 85610; 85730; 87040; 87070; 87077; 87081; 87086; 87186; 87205; 87449; 87899; 93005; 93010; 93306; 94002; 94003; 94640; 94760; 95816; 95819; 95957; 96365; 96367; 96375; 97139; 99292; C9113; J0360; J0692; J2060; J2270; J2543; J2704; J3010; J3370; J3475; J3480; J3490; J7042; J7050; J7120; J7620; P9047; Q9967; U0002; U0003; U0005

== ENCOUNTER 2022-04-15 20:48 | Emergency (ER) | payer BC | END 2022-04-15 22:49 | LOC: CSHERS 20:48 | DX: L03.115 Cellulitis of right lower limb (principal); E78.00 Pure hypercholesterolemia, unspecified ==

== ENCOUNTER 2022-05-01 15:43 | Inpatient (IN) | payer BC ==
[2022-05-01] MEDS ORDERED: Cefepime 2 GM VIAL ONE (16:11)
[2022-05-01 16:24] LABS: #Basophils 0.1 10x3/uL (0.0-0.2); #Eosinphils 0.3 10x3/uL (0.0-0.5); #Monocytes 0.8 10x3/uL (0.0-1.1); #Neutrophils 3.8 10x3/uL (1.5-8.4); %Basophils 0.8 % (0.0-2.0); %Lymphocytes 24.2 % (18.0-47.0); %Monocytes 11.9 % (0.0-10.0); %Neutrophils 58.6 % (40.0-75.0); Hemoglobin 12.4 g/dL (13.5-17.5); Mean Corpuscular HGB CONC 33.3 g/dL (32.0-36.0); Mean Corpuscular Hemoglobin 30.2 pg (27.0-33.0); Mean Corpuscular Volume 90.7 fl (81.2-95.1); Platelet Count 271 10x3/uL (150-450); White Blood Cell (WBC) Count 6.5 10x3/uL (3.5-10.5)
[2022-05-01 17:21] LABS: SARS-CoV-2 NAA Rapid Test Not Detected (NotDetected)
[2022-05-01 18:59] LABS: ALT (SGPT) 19 U/L (8-55); AST (SGOT) 48 U/L (5-34); Albumin 3.6 g/dL (3.4-4.8); Alkaline Phosphatase 55 U/L (40-110); Anion Gap 15 mmol/L (10-20); BUN (Urea Nitrogen) 19 mg/dL (8.4-25.7); Bilirubin, Total 0.3 mg/dL (0.2-1.2); Calc. Creatinine Clearance 0 mL/min (70-130); Carbon Dioxide 21 mmol/L (23-31); Chloride 109 mmol/L (98-107); Estimated GFR 78; Globulin 4.7 g/dL (2.4-3.5); Glucose 78 mg/dL (80-115); Potassium 6.2 mmol/L (3.5-5.1); Protein, Total 8.3 g/dL (5.8-8.1); Sodium 139 mmol/L (136-145)
[2022-05-01] MEDS ORDERED: Calcium Carbonate 500 MG ChewTAB PO PRN (20:02)
[2022-05-01] MEDS ORDERED: Ondansetron PF 4 MG/2 ML Vial IVP PRN (20:02)
[2022-05-01] MEDS ORDERED: Guaifenesin DM 100-10/5 ML UDCUP PO PRN (20:02)
[2022-05-01] MEDS ORDERED: Senokot S 8.6-50 MG TAB PO PRN (20:02)
[2022-05-01 20:48] VITALS: BMI 23.6
[2022-05-01] MEDS: HYDROcodone/Acetaminophen 5/325 mg Tablet PO PRN (20:55)
[2022-05-01] MEDS: Atorvastatin Calcium 40 MG TAB PO SCH (20:55)
[2022-05-01] MEDS: Baclofen 10 MG TAB PO SCH (20:55)
[2022-05-01] MEDS ORDERED: Sodium Chloride 0.9% 1,000 ML IV SCH (21:00)
[2022-05-01] MEDS: Dutasteride 0.5 MG CAP PO SCH (21:59)
[2022-05-01] MEDS: Acetaminophen 325 MG TAB PO PRN (22:01)
[2022-05-01] MEDS ORDERED: Apixaban 5 MG TAB PO SCH (23:00)
[2022-05-01 23:15] LABS: Anion Gap 12 mmol/L (10-20); BUN (Urea Nitrogen) 17 mg/dL (8.4-25.7); Calc. Creatinine Clearance 90 mL/min (70-130); Calcium 8.8 mg/dL (7.8-10.44); Carbon Dioxide 23 mmol/L (23-31); Chloride 111 mmol/L (98-107); Estimated GFR 94; Glucose 107 mg/dL (80-115); Potassium 3.5 mmol/L (3.5-5.1); Sodium 142 mmol/L (136-145)
[2022-05-02 04:47] LABS: #Basophils 0.1 10x3/uL (0.0-0.2); #Eosinphils 0.3 10x3/uL (0.0-0.5); #Neutrophils 5.2 10x3/uL (1.5-8.4); %Basophils 0.6 % (0.0-2.0); %Eosinophils 3.4 % (0.0-6.0); %Lymphocytes 20.5 % (18.0-47.0); %Monocytes 12.5 % (0.0-10.0); %Neutrophils 62.6 % (40.0-75.0); Hemoglobin 10.7 g/dL (13.5-17.5); Mean Corpuscular HGB CONC 33.6 g/dL (32.0-36.0); Mean Corpuscular Hemoglobin 29.9 pg (27.0-33.0); Mean Corpuscular Volume 88.8 fl (81.2-95.1); Mean Platelet Volume 10.7 fl (7.4-10.4); Platelet Count 199 10x3/uL (150-450); RBC Distribution Width 14.6 % (11.5-14.5); Red Blood Cell (RBC) Count 3.58 10x6/uL (4.32-5.72); White Blood Cell (WBC) Count 8.3 10x3/uL (3.5-10.5)
[2022-05-02 04:54] LABS: Anion Gap 10 mmol/L (10-20); BUN (Urea Nitrogen) 16 mg/dL (8.4-25.7); Calc. Creatinine Clearance 92 mL/min (70-130); Calcium 8.8 mg/dL (7.8-10.44); Carbon Dioxide 21 mmol/L (23-31); Chloride 114 mmol/L (98-107); Estimated GFR 95; Glucose 86 mg/dL (80-115); Potassium 3.7 mmol/L (3.5-5.1); Sodium 141 mmol/L (136-145)
[2022-05-02] MEDS: Vancomycin HCl 1 GM in Sodium Chloride 0.9% 250 ML 250 ML IVPB SCH ×2 (05:56→16:24)
[2022-05-02] MEDS: HYDROcodone/Acetaminophen 5/325 mg Tablet PO PRN ×2 (06:19→11:58)
[2022-05-02] MEDS ORDERED: Cefepime 1 GM VIAL ONE (08:03)
[2022-05-02] MEDS ORDERED: Sodium Chloride 0.9% 100 ML ONE (08:03)
[2022-05-02] MEDS ORDERED: Enoxaparin Sodium 40 MG/0.4 ML SYRINGE SC SCH (09:00)
[2022-05-02] MEDS: Cefepime 1 GM in Sodium Chloride 0.9% 100 ML IVPB SCH ×2 (09:26→22:01)
[2022-05-02] MEDS: Apixaban 5 MG TAB PO SCH ×2 (09:27→22:01)
[2022-05-02] MEDS: Tamsulosin HCl 0.4 MG CAP PO SCH (09:27)
[2022-05-02] MEDS: Baclofen 10 MG TAB PO SCH ×2 (09:28→22:01)
[2022-05-02] MEDS ORDERED: Lidocaine 2% Jelly 5 ML TUBE TOP PRN (11:46)
[2022-05-02] MEDS: Atorvastatin Calcium 40 MG TAB PO SCH (22:01)
[2022-05-02] MEDS: Dutasteride 0.5 MG CAP PO SCH (22:01)
[2022-05-02] MEDS: Acetaminophen 325 MG TAB PO PRN (22:03)
[2022-05-03] MEDS: HYDROcodone/Acetaminophen 5/325 mg Tablet PO PRN (00:45)
[2022-05-03] MEDS: Vancomycin HCl 1 GM in Sodium Chloride 0.9% 250 ML 250 ML IVPB SCH (04:32)
[2022-05-03 04:58] LABS: Vancomycin, Trough 14.3 ug/mL
[2022-05-03 04:59] LABS: Anion Gap 10 mmol/L (10-20); BUN (Urea Nitrogen) 19 mg/dL (8.4-25.7); CRP (Inflammatory) Less than 0.50 mg/dL (= or < 0.5); Calc. Creatinine Clearance 77 mL/min (70-130); Calcium 8.4 mg/dL (7.8-10.44); Carbon Dioxide 24 mmol/L (23-31); Chloride 112 mmol/L (98-107); Estimated GFR 79; Glucose 113 mg/dL (80-115); Potassium 3.5 mmol/L (3.5-5.1); Sodium 142 mmol/L (136-145)
[2022-05-03 05:03] LABS: #Eosinphils 0.3 10x3/uL (0.0-0.5); #Monocytes 0.8 10x3/uL (0.0-1.1); #Neutrophils 4.4 10x3/uL (1.5-8.4); %Basophils 0.6 % (0.0-2.0); %Eosinophils 3.8 % (0.0-6.0); %Lymphocytes 21.6 % (18.0-47.0); %Monocytes 11.7 % (0.0-10.0); %Neutrophils 62.2 % (40.0-75.0); Hemoglobin 10.4 g/dL (13.5-17.5); Mean Corpuscular HGB CONC 33.4 g/dL (32.0-36.0); Mean Corpuscular Hemoglobin 29.7 pg (27.0-33.0); Mean Corpuscular Volume 88.9 fl (81.2-95.1); Mean Platelet Volume 10.5 fl (7.4-10.4); Platelet Count 175 10x3/uL (150-450); RBC Distribution Width 14.6 % (11.5-14.5); White Blood Cell (WBC) Count 7.1 10x3/uL (3.5-10.5)
[2022-05-03] MEDS: Apixaban 5 MG TAB PO SCH ×2 (08:57→20:09)
[2022-05-03] MEDS: Tamsulosin HCl 0.4 MG CAP PO SCH (08:57)
[2022-05-03] MEDS: Baclofen 10 MG TAB PO SCH ×2 (08:58→20:09)
[2022-05-03] MEDS: Cefepime 1 GM in Sodium Chloride 0.9% 100 ML IVPB SCH ×2 (08:58→20:07)
[2022-05-03] MEDS: Atorvastatin Calcium 40 MG TAB PO SCH (20:09)
[2022-05-03] MEDS: Dutasteride 0.5 MG CAP PO SCH (20:26)
[2022-05-04] MEDS: HYDROcodone/Acetaminophen 5/325 mg Tablet PO PRN ×2 (08:43→17:08)
[2022-05-04] MEDS: Tamsulosin HCl 0.4 MG CAP PO SCH (08:46)
[2022-05-04] MEDS: Apixaban 5 MG TAB PO SCH ×2 (08:49→21:31)
[2022-05-04] MEDS: Baclofen 10 MG TAB PO SCH ×2 (08:49→21:32)
[2022-05-04] MEDS: Cefepime 1 GM in Sodium Chloride 0.9% 100 ML IVPB SCH ×2 (08:49→21:26)
[2022-05-04] MEDS: Atorvastatin Calcium 40 MG TAB PO SCH (21:31)
[2022-05-04] MEDS: Dutasteride 0.5 MG CAP PO SCH (21:32)
[2022-05-05] MEDS: Cefepime 1 GM in Sodium Chloride 0.9% 100 ML IVPB SCH ×2 (08:44→22:25)
[2022-05-05] MEDS: Apixaban 5 MG TAB PO SCH ×2 (08:45→22:26)
[2022-05-05] MEDS: Baclofen 10 MG TAB PO SCH ×2 (08:46→22:25)
[2022-05-05] MEDS: Tamsulosin HCl 0.4 MG CAP PO SCH (08:46)
[2022-05-05] MEDS ORDERED: Gabapentin 300 MG CAP PO SCH (11:45)
[2022-05-05] MEDS: Dutasteride 0.5 MG CAP PO SCH (22:25)
[2022-05-05] MEDS: Atorvastatin Calcium 40 MG TAB PO SCH (22:26)
[2022-05-05] MEDS: Gabapentin 300 MG CAP PO SCH (22:27)
[2022-05-06] MEDS: Cefepime 1 GM in Sodium Chloride 0.9% 100 ML IVPB SCH (10:38)
[2022-05-06] MEDS: Gabapentin 300 MG CAP PO SCH (10:39)
[2022-05-06] MEDS: Baclofen 10 MG TAB PO SCH (10:39)
[2022-05-06] MEDS: Tamsulosin HCl 0.4 MG CAP PO SCH (10:40)
[2022-05-06] MEDS: Apixaban 5 MG TAB PO SCH (10:40)
[2022-05-06 13:02] VITALS: BP 150/70; TEMP 97.2
[2022-05-09] MEDS ORDERED: Apixaban 5 MG TAB PO SCH (09:00)
== END 2022-05-06 13:45 | disposition home health service (06) | DRG 300 ==
LOC: CSHERS 15:43 → CSHTELE 20:28
PROVIDERS: ADMIT Internal Medicine; ATTEND Family Medicine
DX: I82.431 Acute embolism and thrombosis of right popliteal vein (principal); I69.951 Hemiplegia and hemiparesis following unspecified cerebrovascular disease affecting right dominant side; L03.115 Cellulitis of right lower limb; S81.801A Unspecified open wound, right lower leg, initial encounter; I87.8 Other specified disorders of veins; I10 Essential (primary) hypertension; N40.0 Benign prostatic hyperplasia without lower urinary tract symptoms; F90.9 Attention-deficit hyperactivity disorder, unspecified type; E87.5 Hyperkalemia; E78.2 Mixed hyperlipidemia; I25.10 Atherosclerotic heart disease of native coronary artery without angina pectoris; Z20.822 Contact with and (suspected) exposure to COVID-19; Z99.3 Dependence on wheelchair; Z79.899 Other long term (current) drug therapy; Z87.891 Personal history of nicotine dependence; Z91.048 Other nonmedicinal substance allergy status; Z98.890 Other specified postprocedural states
CPT/HCPCS: 36415; 80048; 80053; 80202; 82565; 83605; 84520; 85025; 86140; 87040; 93923; 96365; 96366; 96375; 97139; J0692; J3370; J3490; J7050; U0002

== ENCOUNTER 2022-05-14 03:35 | Emergency (ER) | payer BC ==
[2022-05-14 04:27] LABS: #Eosinphils 0.4 10x3/uL (0.0-0.5); #Monocytes 0.9 10x3/uL (0.0-1.1); #Neutrophils 3.6 10x3/uL (1.5-8.4); %Basophils 0.6 % (0.0-2.0); %Eosinophils 5.3 % (0.0-6.0); %Lymphocytes 30.9 % (18.0-47.0); %Neutrophils 50.9 % (40.0-75.0); Hemoglobin 11.3 g/dL (13.5-17.5); Mean Corpuscular Hemoglobin 30.1 pg (27.0-33.0); Mean Platelet Volume 10.1 fl (7.4-10.4); Platelet Count 300 10x3/uL (150-450); RBC Distribution Width 14.1 % (11.5-14.5); Red Blood Cell (RBC) Count 3.76 10x6/uL (4.32-5.72); White Blood Cell (WBC) Count 7.1 10x3/uL (3.5-10.5)
[2022-05-14 04:36] LABS: ALT (SGPT) 19 U/L (8-55); AST (SGOT) 21 U/L (5-34); Albumin 3.8 g/dL (3.4-4.8); Alkaline Phosphatase 57 U/L (40-110); Anion Gap 13 mmol/L (10-20); BUN (Urea Nitrogen) 16 mg/dL (8.4-25.7); Bilirubin, Total 0.4 mg/dL (0.2-1.2); CK (CPK) 73 U/L (30-200); Calc. Creatinine Clearance 0 mL/min (70-130); Calcium 9.1 mg/dL (7.8-10.44); Carbon Dioxide 26 mmol/L (23-31); Chloride 106 mmol/L (98-107); Estimated GFR 86; Globulin 3.8 g/dL (2.4-3.5); Glucose 87 mg/dL (80-115); Potassium 3.9 mmol/L (3.5-5.1); Protein, Total 7.6 g/dL (5.8-8.1); Sodium 141 mmol/L (136-145)
== END 2022-05-14 06:05 ==
LOC: CSHERS 03:35
DX: G93.41 Metabolic encephalopathy (principal); F03.90 Unspecified dementia, unspecified severity, without behavioral disturbance, psychotic disturbance, mood disturbance, and anxiety; I25.10 Atherosclerotic heart disease of native coronary artery without angina pectoris; Z86.73 Personal history of transient ischemic attack (TIA), and cerebral infarction without residual deficits; Z79.899 Other long term (current) drug therapy; Z79.01 Long term (current) use of anticoagulants
CPT/HCPCS: 51701; 70450; 71045; 80053; 82550; 83605; 84484; 85025; 93005

== ENCOUNTER 2022-05-15 11:33 | Emergency (ER) | payer BC ==
[2022-05-15 13:04] LABS: #Eosinphils 0.2 10x3/uL (0.0-0.5); #Monocytes 0.9 10x3/uL (0.0-1.1); #Neutrophils 4.2 10x3/uL (1.5-8.4); %Basophils 0.6 % (0.0-2.0); %Eosinophils 3.4 % (0.0-6.0); %Lymphocytes 25.6 % (18.0-47.0); %Monocytes 12.3 % (0.0-10.0); %Neutrophils 57.8 % (40.0-75.0); Hemoglobin 12.2 g/dL (13.5-17.5); Mean Corpuscular HGB CONC 32.8 g/dL (32.0-36.0); Mean Corpuscular Hemoglobin 29.3 pg (27.0-33.0); Mean Corpuscular Volume 89.2 fl (81.2-95.1); Mean Platelet Volume 9.8 fl (7.4-10.4); Platelet Count 275 10x3/uL (150-450); RBC Distribution Width 14.1 % (11.5-14.5); Red Blood Cell (RBC) Count 4.17 10x6/uL (4.32-5.72); White Blood Cell (WBC) Count 7.2 10x3/uL (3.5-10.5)
[2022-05-15 13:09] LABS: ALT (SGPT) 19 U/L (8-55); AST (SGOT) 17 U/L (5-34); Albumin 3.9 g/dL (3.4-4.8); Alkaline Phosphatase 66 U/L (40-110); Anion Gap 12 mmol/L (10-20); BUN (Urea Nitrogen) 13 mg/dL (8.4-25.7); Bilirubin, Total 0.5 mg/dL (0.2-1.2); Calc. Creatinine Clearance 0 mL/min (70-130); Calcium 9.4 mg/dL (7.8-10.44); Carbon Dioxide 27 mmol/L (23-31); Chloride 106 mmol/L (98-107); Estimated GFR 90; Globulin 3.9 g/dL (2.4-3.5); Glucose 87 mg/dL (80-115); Potassium 3.6 mmol/L (3.5-5.1); Protein, Total 7.8 g/dL (5.8-8.1); Sodium 141 mmol/L (136-145)
[2022-05-15 13:14] LABS: Bilirubin Neg (Negative); Glucose, Urine (Dipstick) Normal (Negative); Ketone, Urine Negative (Negative); Urobilinogen Normal mg/dL (Less than 2)
[2022-05-15 13:17] LABS: Blood, Urine Unable to Interpret (Negative); Clarity Slightly Cloudy (Clear); Leukocyte Unable to Interpret (Negative); Nitrite Unable to Interpret (Negative); Protein, Urine (Dipstick) Unable to Interpret mg/dl (Neg-Trace)
[2022-05-15 13:18] LABS: Bacteria/HPF Rare-Few HPF (None Seen); RBC/HPF Greater than 50 HPF (0-3); Squamous Epithelial None Seen HPF (0-3); WBC/HPF 0-3 HPF (0-3)
== END 2022-05-15 16:37 | disposition home or self-care (01) ==
LOC: CSHERS 11:33
DX: R31.9 Hematuria, unspecified (principal); R33.9 Retention of urine, unspecified; I25.10 Atherosclerotic heart disease of native coronary artery without angina pectoris; Z86.73 Personal history of transient ischemic attack (TIA), and cerebral infarction without residual deficits; E78.5 Hyperlipidemia, unspecified; Z79.899 Other long term (current) drug therapy
CPT/HCPCS: 36415; 51702; 70450; 80053; 81003; 81015; 83605; 85025; 87086

== ENCOUNTER 2022-05-23 17:24 | Emergency (ER) | payer BC | END 2022-05-23 17:50 | disposition home or self-care (01) | LOC: CSHERS 17:24 | DX: T83.098A Other mechanical complication of other urinary catheter, initial encounter (principal); I25.10 Atherosclerotic heart disease of native coronary artery without angina pectoris; E78.5 Hyperlipidemia, unspecified | CPT/HCPCS: 99283 ==

== ENCOUNTER 2022-07-05 19:30 | Emergency (ER) | payer BC | END 2022-07-05 21:09 | disposition home or self-care (01) | LOC: CSHERS 19:30 | DX: T83.098A Other mechanical complication of other urinary catheter, initial encounter (principal); I25.10 Atherosclerotic heart disease of native coronary artery without angina pectoris; E78.5 Hyperlipidemia, unspecified; Z71.1 Person with feared health complaint in whom no diagnosis is made; Z86.73 Personal history of transient ischemic attack (TIA), and cerebral infarction without residual deficits | CPT/HCPCS: 99283 ==

== ENCOUNTER 2022-07-06 05:39 | Emergency (ER) | payer BC ==
[2022-07-06] MEDS ORDERED: Lidocaine Viscous Sol 2% 15 ml UD Cup ONE (05:50)
== END 2022-07-06 06:46 | disposition home or self-care (01) ==
LOC: CSHERS 05:39
DX: T83.038A Leakage of other urinary catheter, initial encounter (principal); I25.10 Atherosclerotic heart disease of native coronary artery without angina pectoris; E78.5 Hyperlipidemia, unspecified; Z86.73 Personal history of transient ischemic attack (TIA), and cerebral infarction without residual deficits; Z79.899 Other long term (current) drug therapy

== ENCOUNTER 2022-07-06 17:45 | Inpatient (IN) | payer BC ==
[2022-07-06] MEDS ORDERED: cefTRIAXone\\ROCEPHIN 2 GM VIAL ONE (18:56)
[2022-07-06 18:59] LABS: #Basophils 0.1 10x3/uL (0.0-0.2); #Eosinphils 0.4 10x3/uL (0.0-0.5); #Monocytes 1.2 10x3/uL (0.0-1.1); #Neutrophils 8.2 10x3/uL (1.5-8.4); %Basophils 0.4 % (0.0-2.0); %Eosinophils 3.4 % (0.0-6.0); %Lymphocytes 13.2 % (18.0-47.0); %Monocytes 10.3 % (0.0-10.0); %Neutrophils 72.3 % (40.0-75.0); Hemoglobin 11.4 g/dL (13.5-17.5); Mean Corpuscular HGB CONC 34.2 g/dL (32.0-36.0); Mean Corpuscular Hemoglobin 28.9 pg (27.0-33.0); Mean Corpuscular Volume 84.5 fl (81.2-95.1); Mean Platelet Volume 10.3 fl (7.4-10.4); Platelet Count 267 10x3/uL (150-450); RBC Distribution Width 13.9 % (11.5-14.5); Red Blood Cell (RBC) Count 3.94 10x6/uL (4.32-5.72); White Blood Cell (WBC) Count 11.4 10x3/uL (3.5-10.5)
[2022-07-06 19:14] LABS: ALT (SGPT) 11 U/L (8-55); AST (SGOT) 19 U/L (5-34); Albumin 3.8 g/dL (3.4-4.8); Alkaline Phosphatase 75 U/L (40-110); Anion Gap 13 mmol/L (10-20); BUN (Urea Nitrogen) 23 mg/dL (8.4-25.7); Calc. Creatinine Clearance 0 mL/min (70-130); Calcium 9.4 mg/dL (7.8-10.44); Carbon Dioxide 22 mmol/L (23-31); Chloride 106 mmol/L (98-107); Estimated GFR 73; Globulin 3.8 g/dL (2.4-3.5); Glucose 88 mg/dL (80-115); Potassium 3.9 mmol/L (3.5-5.1); Protein, Total 7.6 g/dL (5.8-8.1); Sodium 137 mmol/L (136-145)
[2022-07-06] MEDS ORDERED: Calcium Carbonate 500 MG ChewTAB PO PRN (20:10)
[2022-07-06] MEDS ORDERED: HYDROcodone/Acetaminophen 5/325 mg Tablet PO PRN (20:10)
[2022-07-06] MEDS ORDERED: Ondansetron PF 4 MG/2 ML Vial IVP PRN (20:10)
[2022-07-06] MEDS ORDERED: Acetaminophen 325 MG TAB PO PRN (20:10)
[2022-07-06] MEDS ORDERED: Senokot S 8.6-50 MG TAB PO PRN (20:10)
[2022-07-06] MEDS ORDERED: Guaifenesin DM 100-10/5 ML UDCUP PO PRN (20:10)
[2022-07-06] MEDS ORDERED: Lactated Ringer's 1,000 ML IV SCH (20:15)
[2022-07-06 21:49] VITALS: BMI 21.5
[2022-07-06] MEDS: Vancomycin HCl 750 MG in Sodium Chloride 0.9% 250 ML 250 ML IVPB SCH (22:58)
[2022-07-06] MEDS: Tamsulosin HCl 0.4 MG CAP PO SCH (23:01)
[2022-07-06] MEDS: Baclofen 10 MG TAB PO SCH (23:01)
[2022-07-06] MEDS: Atorvastatin Calcium 40 MG TAB PO SCH (23:02)
[2022-07-06] MEDS: Gabapentin 300 MG CAP PO SCH (23:02)
[2022-07-06] MEDS: Apixaban 5 MG TAB PO SCH (23:02)
[2022-07-07 00:08] LABS: Bilirubin Neg (Negative); Blood, Urine 250 (Negative); Clarity Sl. Cloudy (Clear); Glucose, Urine (Dipstick) Normal (Negative); Ketone, Urine 5 mg/dL (Negative); Leukocyte 25 (Negative); Nitrite Negative (Negative); Protein, Urine (Dipstick) Negative (Neg-Trace); Specific Gravity, Urine 1.005 (1.005-1.030); Urobilinogen Normal mg/dL (Less than 2)
[2022-07-07 00:18] LABS: Bacteria/HPF None Seen HPF (None Seen); RBC/HPF 21-50 HPF (0-3); Squamous Epithelial None Seen HPF (0-3); WBC/HPF 0-3 HPF (0-3)
[2022-07-07] MEDS: Dutasteride 0.5 MG CAP PO SCH ×3 (00:33→20:57)
[2022-07-07 04:31] LABS: #Eosinphils 0.3 10x3/uL (0.0-0.5); #Monocytes 0.9 10x3/uL (0.0-1.1); #Neutrophils 4.6 10x3/uL (1.5-8.4); %Basophils 0.6 % (0.0-2.0); %Eosinophils 4.6 % (0.0-6.0); %Lymphocytes 18.6 % (18.0-47.0); %Monocytes 12.6 % (0.0-10.0); %Neutrophils 63.3 % (40.0-75.0); Hemoglobin 10.5 g/dL (13.5-17.5); Mean Corpuscular HGB CONC 33.7 g/dL (32.0-36.0); Mean Corpuscular Hemoglobin 28.7 pg (27.0-33.0); Mean Corpuscular Volume 85.2 fl (81.2-95.1); Mean Platelet Volume 9.6 fl (7.4-10.4); Platelet Count 234 10x3/uL (150-450); RBC Distribution Width 13.7 % (11.5-14.5); Red Blood Cell (RBC) Count 3.66 10x6/uL (4.32-5.72); White Blood Cell (WBC) Count 7.2 10x3/uL (3.5-10.5)
[2022-07-07 04:38] LABS: Anion Gap 13 mmol/L (10-20); BUN (Urea Nitrogen) 20 mg/dL (8.4-25.7); Calc. Creatinine Clearance 71 mL/min (70-130); Carbon Dioxide 22 mmol/L (23-31); Chloride 108 mmol/L (98-107); Estimated GFR 80; Glucose 81 mg/dL (80-115); Potassium 3.6 mmol/L (3.5-5.1); Sodium 139 mmol/L (136-145)
[2022-07-07] MEDS: Gabapentin 300 MG CAP PO SCH ×2 (09:46→20:57)
[2022-07-07] MEDS: Baclofen 10 MG TAB PO SCH ×2 (09:46→20:56)
[2022-07-07] MEDS: Apixaban 5 MG TAB PO SCH ×2 (09:46→20:56)
[2022-07-07] MEDS: Vancomycin HCl 750 MG in Sodium Chloride 0.9% 250 ML 250 ML IVPB SCH ×3 (12:16→16:37)
[2022-07-07] MEDS ORDERED: Sodium Chloride 0.9% 100 ML ONE (16:38)
[2022-07-07] MEDS ORDERED: cefTRIAXone\\ROCEPHIN 1 GM in Sodium Chloride 0.9% 100 ML IVPB SCH (18:00)
[2022-07-07] MEDS: Atorvastatin Calcium 40 MG TAB PO SCH (20:56)
[2022-07-07] MEDS: Tamsulosin HCl 0.4 MG CAP PO SCH (20:57)
[2022-07-08] MEDS: Vancomycin HCl 750 MG in Sodium Chloride 0.9% 250 ML 250 ML IVPB SCH (05:14)
[2022-07-08] MEDS: Baclofen 10 MG TAB PO SCH (08:34)
[2022-07-08] MEDS: Apixaban 5 MG TAB PO SCH (08:34)
[2022-07-08] MEDS: Gabapentin 300 MG CAP PO SCH (08:35)
[2022-07-08 12:19] VITALS: TEMP 98.3
[2022-07-08 13:27] VITALS: BP 119/78
== END 2022-07-08 15:30 | DRG 603 ==
LOC: CSHERS 17:45 → CSHTELE 21:44
PROVIDERS: ADMIT Student in an Organized Health Care Education/Training Program; ATTEND Internal Medicine
DX: L03.115 Cellulitis of right lower limb (principal); I69.351 Hemiplegia and hemiparesis following cerebral infarction affecting right dominant side; Z20.822 Contact with and (suspected) exposure to COVID-19; R31.0 Gross hematuria; N40.1 Benign prostatic hyperplasia with lower urinary tract symptoms; R33.8 Other retention of urine; I10 Essential (primary) hypertension; E78.5 Hyperlipidemia, unspecified; F90.9 Attention-deficit hyperactivity disorder, unspecified type; Z99.3 Dependence on wheelchair; Z79.01 Long term (current) use of anticoagulants; Z91.048 Other nonmedicinal substance allergy status; Z88.8 Allergy status to other drugs, medicaments and biological substances; Z86.718 Personal history of other venous thrombosis and embolism; Z87.891 Personal history of nicotine dependence
CPT/HCPCS: 36415; 76770; 80048; 80053; 81001; 83605; 85025; 87040; 87086; 96365; 97139; 99283; J0696; J3370; J3490; J7050; J7120; U0003; U0005

== ENCOUNTER 2022-07-12 13:00 | Emergency (ER) | payer BC ==
[2022-07-12 14:52] LABS: Bilirubin Neg (Negative); Blood, Urine 250 (Negative); Clarity Sl. Cloudy (Clear); Glucose, Urine (Dipstick) Normal (Negative); Ketone, Urine Negative (Negative); Leukocyte 25 (Negative); Nitrite Negative (Negative); Protein, Urine (Dipstick) 15 mg/dl (Neg-Trace); Urobilinogen Normal mg/dL (Less than 2)
[2022-07-12 15:06] LABS: Bacteria/HPF None Seen HPF (None Seen); RBC/HPF Greater than 50 HPF (0-3); Squamous Epithelial 0-3 HPF (0-3); WBC/HPF 0-3 HPF (0-3)
== END 2022-07-12 16:10 | disposition home or self-care (01) ==
LOC: CSHERS 13:00
DX: R33.9 Retention of urine, unspecified (principal); I25.10 Atherosclerotic heart disease of native coronary artery without angina pectoris; E78.5 Hyperlipidemia, unspecified; Z86.73 Personal history of transient ischemic attack (TIA), and cerebral infarction without residual deficits
CPT/HCPCS: 51702; 81003; 81015

== ENCOUNTER 2022-08-26 11:48 | Emergency (ER) | payer BC ==
[2022-08-26 12:51] LABS: #Basophils 0.1 10x3/uL (0.0-0.2); #Eosinphils 0.1 10x3/uL (0.0-0.5); #Neutrophils 12.5 10x3/uL (1.5-8.4); %Basophils 0.4 % (0.0-2.0); %Eosinophils 0.4 % (0.0-6.0); %Lymphocytes 3.6 % (18.0-47.0); %Monocytes 7.1 % (0.0-10.0); %Neutrophils 88.1 % (40.0-75.0); Hemoglobin 11.8 g/dL (13.5-17.5); Mean Corpuscular HGB CONC 32.4 g/dL (32.0-36.0); Mean Corpuscular Hemoglobin 27.6 pg (27.0-33.0); Mean Platelet Volume 9.8 fl (7.4-10.4); Platelet Count 248 10x3/uL (150-450); RBC Distribution Width 15.4 % (11.5-14.5); Red Blood Cell (RBC) Count 4.28 10x6/uL (4.32-5.72); White Blood Cell (WBC) Count 14.2 10x3/uL (3.5-10.5)
[2022-08-26 13:05] LABS: ALT (SGPT) 13 U/L (8-55); AST (SGOT) 15 U/L (5-34); Albumin 4.2 g/dL (3.4-4.8); Alkaline Phosphatase 84 U/L (40-110); Anion Gap 14 mmol/L (10-20); BUN (Urea Nitrogen) 26 mg/dL (8.4-25.7); Bilirubin, Total 0.6 mg/dL (0.2-1.2); Calc. Creatinine Clearance 0 mL/min (70-130); Calcium 9.2 mg/dL (7.8-10.44); Carbon Dioxide 23 mmol/L (23-31); Chloride 104 mmol/L (98-107); Estimated GFR 54; Globulin 3.8 g/dL (2.4-3.5); Glucose 99 mg/dL (80-115); Lipase 14 U/L (8-78); Potassium 4.2 mmol/L (3.5-5.1); Sodium 137 mmol/L (136-145)
[2022-08-26 14:52] LABS: Bilirubin Neg (Negative); Blood, Urine 250 (Negative); Clarity Cloudy (Clear); Glucose, Urine (Dipstick) Normal (Negative); Ketone, Urine 5 mg/dL (Negative); Leukocyte 500 (Negative); Nitrite Positive (Negative); Protein, Urine (Dipstick) 100 mg/dl (Neg-Trace); Specific Gravity, Urine 1.015 (1.005-1.030); Urobilinogen Normal mg/dL (Less than 2)
[2022-08-26 15:01] LABS: Bacteria/HPF 4+ HPF (None Seen); RBC/HPF 21-50 HPF (0-3); Squamous Epithelial 0-3 HPF (0-3)
[2022-08-26 15:02] LABS: Triple Phosphate Crystal 1+ HPF (None Seen)
== END 2022-08-26 16:59 | disposition home or self-care (01) ==
LOC: CSHERS 11:48
DX: N39.0 Urinary tract infection, site not specified (principal); R33.9 Retention of urine, unspecified; I25.10 Atherosclerotic heart disease of native coronary artery without angina pectoris; E78.5 Hyperlipidemia, unspecified
CPT/HCPCS: 80053; 81003; 81015; 83605; 83690; 85025; 99283

== ENCOUNTER 2023-07-11 07:56 | Emergency (ER) | payer BC ==
[2023-07-11] MEDS ORDERED: Bacitracin 1 PK ONE (08:44)
== END 2023-07-11 08:52 | disposition home or self-care (01) ==
LOC: CSHERS 07:56
DX: T83.091A Other mechanical complication of indwelling urethral catheter, initial encounter (principal); L89.90 Pressure ulcer of unspecified site, unspecified stage; I25.10 Atherosclerotic heart disease of native coronary artery without angina pectoris; E78.5 Hyperlipidemia, unspecified; Z87.891 Personal history of nicotine dependence
CPT/HCPCS: 99284

== ENCOUNTER 2023-09-05 13:15 | Emergency (ER) | payer BC ==
[2023-09-05 13:35] LABS: Bilirubin Neg (Negative); Blood, Urine 250 (Negative); Clarity Slightly Cloudy (Clear); Glucose, Urine (Dipstick) Normal (Negative); Ketone, Urine 5 mg/dL (Negative); Leukocyte 500 (Negative); Nitrite Positive (Negative); Protein, Urine (Dipstick) 500 mg/dl (Neg-Trace); Urobilinogen Normal mg/dL (Less than 2)
[2023-09-05 13:49] LABS: CAUTI Indications for Culture Pelvic or flank pain; RBC/HPF Greater than 50 HPF (0-3); Squamous Epithelial 0-3 HPF (0-3); WBC/HPF Greater than 50 HPF (0-3)
[2023-09-05 13:50] LABS: Bacteria/HPF 3+ HPF (None Seen); Triple Phosphate Crystal Rare HPF (None Seen)
[2023-09-05 13:51] LABS: Urine Culture Reflex Yes Yes
[2023-09-05] MEDS ORDERED: Lidocaine 2% 6 ML (Jelly) SYR ONE (14:54)
[2023-09-05] MEDS ORDERED: cefTRIAXone (ROCEPHIN) 1 GM VIAL ONE (15:48)
[2023-09-05] MEDS ORDERED: Sterile Water 10 ML ONE (15:48)
== END 2023-09-05 16:48 | disposition home or self-care (01) ==
LOC: CSHERS 13:15
DX: T83.091A Other mechanical complication of indwelling urethral catheter, initial encounter (principal); N39.0 Urinary tract infection, site not specified; Y84.6 Urinary catheterization as the cause of abnormal reaction of the patient, or of later complication, without mention of misadventure at the time of the procedure; Z87.891 Personal history of nicotine dependence
CPT/HCPCS: 81001; 87077; 87086; 87186; 96372; 99283; J0696

== ENCOUNTER 2025-03-29 16:37 | Inpatient (IN) | payer MEDICARE, SELFPAY ==
[2025-03-29 17:37] LABS: #Basophils 0.04 10x3/uL (0.0-0.2); #Eosinophils 0.87 10x3/uL (0.0-0.5); #Monocytes 0.62 10x3/uL (0.0-1.1); #Neutrophils 6.88 10x3/uL (1.5-8.4); %Basophils 0.4 % (0.0-2.0); %Eosinophils 8.6 % (0.0-6.0); %Lymphocytes 16.8 % (18.0-47.0); %Monocytes 6.1 % (0.0-10.0); %Neutrophils 67.7 % (40.0-75.0); Hematocrit 43.2 % (38.8-50.0); Hemoglobin 14.0 g/dL (13.5-17.5); Mean Corpuscular Hemoglobin 27.8 pg (27.0-33.0); Mean Corpuscular Volume 85.9 fL (81.2-95.1); Platelet Count 248 10x3/uL (150-450); Red Blood Cell (RBC) Count 5.03 10x6/uL (4.32-5.72); White Blood Cell (WBC) Count 10.16 10x3/uL (3.5-10.5)
[2025-03-29] MEDS ORDERED: cefTRIAXone (ROCEPHIN) 2 GM VIAL ONE (17:51)
[2025-03-29 17:54] LABS: ALT (SGPT) 19 U/L (Less than 45); AST (SGOT) 21 U/L (11-34); Albumin 4.0 g/dL (3.1-4.5); Alkaline Phosphatase 77 U/L (40-110); Anion Gap 14 mmol/L (10-20); BUN (Urea Nitrogen) 20 mg/dL (8.4-25.7); Bilirubin, Total 0.3 mg/dL (0.3-1.2); Calc. Creatinine Clearance 0 mL/min (70-130); Calcium 9.1 mg/dL (7.8-10.44); Carbon Dioxide 26 mmol/L (23-31); Chloride 105 mmol/L (98-107); Globulin 4.4 g/dL (2.4-3.5); Glucose 134 mg/dL (80-115); Potassium 4.1 mmol/L (3.5-5.1); Sodium 141 mmol/L (136-145)
[2025-03-29] MEDS ORDERED: Senokot S 8.6-50 MG TAB PO PRN (18:59)
[2025-03-29] MEDS ORDERED: Melatonin 3 MG TAB PO PRN (18:59)
[2025-03-29] MEDS ORDERED: Calcium Carbonate 500 MG ChewTAB PO PRN (18:59)
[2025-03-29] MEDS ORDERED: Acetaminophen 325 MG TAB PO PRN (18:59)
[2025-03-29] MEDS: VANCOMYCIN 2 GRAM/400 ML BAG 2 GM in Premix 1 BAG IVPB SCH (19:00)
[2025-03-29] MEDS ORDERED: Furosemide 40 MG (4 mL) VIAL ONE (20:18)
[2025-03-29] MEDS: Furosemide 40 MG (4 mL) VIAL SLOW IVP SCH (20:43)
[2025-03-29] MEDS ORDERED: CEFAZOLIN 2 GM VIAL ONE (21:32)
[2025-03-30 03:18] LABS: #Basophils 0.04 10x3/uL (0.0-0.2); #Eosinophils 0.91 10x3/uL (0.0-0.5); #Monocytes 1.00 10x3/uL (0.0-1.1); #Neutrophils 6.18 10x3/uL (1.5-8.4); %Basophils 0.4 % (0.0-2.0); %Eosinophils 9.6 % (0.0-6.0); %Lymphocytes 14.2 % (18.0-47.0); %Monocytes 10.5 % (0.0-10.0); %Neutrophils 65.1 % (40.0-75.0); Hematocrit 41.2 % (38.8-50.0); Hemoglobin 13.2 g/dL (13.5-17.5); Mean Corpuscular Hemoglobin 27.0 pg (27.0-33.0); Mean Corpuscular Volume 84.3 fL (81.2-95.1); Platelet Count 268 10x3/uL (150-450); Red Blood Cell (RBC) Count 4.89 10x6/uL (4.32-5.72); White Blood Cell (WBC) Count 9.50 10x3/uL (3.5-10.5)
[2025-03-30 03:51] LABS: Anion Gap 14 mmol/L (10-20); BUN (Urea Nitrogen) 18 mg/dL (8.4-25.7); Calc. Creatinine Clearance 0 mL/min (70-130); Calcium 8.7 mg/dL (7.8-10.44); Carbon Dioxide 24 mmol/L (23-31); Chloride 108 mmol/L (98-107); Glucose 96 mg/dL (80-115); Potassium 3.6 mmol/L (3.5-5.1); Sodium 142 mmol/L (136-145)
[2025-03-30] MEDS ORDERED: Enoxaparin 40 MG (0.4 mL) SYRINGE ONE (09:45)
[2025-03-30] MEDS ORDERED: Furosemide 40 MG (4 mL) VIAL ONE (09:45)
[2025-03-30] MEDS: Enoxaparin 40 MG (0.4 mL) SYRINGE SC SCH (09:58)
[2025-03-30] MEDS: Furosemide 40 MG (4 mL) VIAL SLOW IVP SCH (09:58)
[2025-03-30] MEDS ORDERED: Aspirin Chewable 81 MG TAB ONE (12:32)
[2025-03-30] MEDS ORDERED: Pantoprazole 40 MG DR.TAB ONE (12:33)
[2025-03-30] MEDS ORDERED: Losartan 25 MG TAB ONE (12:33)
[2025-03-30] MEDS: Losartan 25 MG TAB PO SCH ×2 (12:42→20:40)
[2025-03-30] MEDS: Pantoprazole 40 MG DR.TAB PO SCH (12:43)
[2025-03-30] MEDS: Aspirin 81 mg Enteric Coated Tablet PO SCH (12:43)
[2025-03-30 15:22] VITALS: BMI 27.1
[2025-03-31 05:08] LABS: #Basophils 0.05 10x3/uL (0.0-0.2); #Eosinophils 1.25 10x3/uL (0.0-0.5); #Monocytes 0.82 10x3/uL (0.0-1.1); #Neutrophils 3.98 10x3/uL (1.5-8.4); %Basophils 0.6 % (0.0-2.0); %Eosinophils 15.9 % (0.0-6.0); %Lymphocytes 22.3 % (18.0-47.0); %Monocytes 10.4 % (0.0-10.0); %Neutrophils 50.5 % (40.0-75.0); Hematocrit 43.6 % (38.8-50.0); Hemoglobin 14.1 g/dL (13.5-17.5); Mean Corpuscular Hemoglobin 27.7 pg (27.0-33.0); Mean Corpuscular Volume 85.7 fL (81.2-95.1); Platelet Count 262 10x3/uL (150-450); Red Blood Cell (RBC) Count 5.09 10x6/uL (4.32-5.72); White Blood Cell (WBC) Count 7.88 10x3/uL (3.5-10.5)
[2025-03-31 05:24] LABS: Anion Gap 13 mmol/L (10-20); BUN (Urea Nitrogen) 27 mg/dL (8.4-25.7); Calc. Creatinine Clearance 67 mL/min (70-130); Calcium 8.7 mg/dL (7.8-10.44); Carbon Dioxide 23 mmol/L (23-31); Chloride 108 mmol/L (98-107); Glucose 90 mg/dL (80-115); Potassium 3.7 mmol/L (3.5-5.1); Sodium 140 mmol/L (136-145)
[2025-03-31] MEDS ORDERED: Gabapentin 300 MG CAP PO SCH (09:00)
[2025-03-31] MEDS: Pantoprazole 40 MG DR.TAB PO SCH (09:04)
[2025-03-31] MEDS: Aspirin Chewable 81 MG TAB PO SCH (09:05)
[2025-03-31] MEDS: Gabapentin 300 MG CAP PO SCH (09:05)
[2025-03-31 12:41] VITALS: BP 145/79; TEMP 97.9
[2025-03-31] MEDS: PNEUMOC 20-VAL CONJ-DIP CRM/PF 0.5 ML SYRINGE IM ONE (14:14)
== END 2025-03-31 15:45 | disposition home or self-care (01) | DRG 603 ==
LOC: CSHERS 16:37 → CSHICU 18:55 → CSHERHOLD 20:43 → CSHTELE 03-30 14:53
PROVIDERS: ADMIT Internal Medicine; ATTEND Hospitalist
PROC: 3E03329 Introduction of Other Anti-infective into Peripheral Vein, Percutaneous Approach (ICD-10-PCS; principal; 2025-03-29)
PROC: 0T9B70Z Drainage of Bladder with Drainage Device, Via Natural or Artificial Opening (ICD-10-PCS; 2025-03-29)
DX: L03.115 Cellulitis of right lower limb (principal); I69.951 Hemiplegia and hemiparesis following unspecified cerebrovascular disease affecting right dominant side; I25.10 Atherosclerotic heart disease of native coronary artery without angina pectoris; E78.5 Hyperlipidemia, unspecified; I10 Essential (primary) hypertension; N40.1 Benign prostatic hyperplasia with lower urinary tract symptoms; N31.9 Neuromuscular dysfunction of bladder, unspecified; F12.10 Cannabis abuse, uncomplicated; Z98.890 Other specified postprocedural states; Z87.891 Personal history of nicotine dependence; Z91.048 Other nonmedicinal substance allergy status; Z79.899 Other long term (current) drug therapy; Z79.82 Long term (current) use of aspirin; Z86.718 Personal history of other venous thrombosis and embolism; Z99.3 Dependence on wheelchair
CPT/HCPCS: 36415; 80048; 80053; 83605; 85025; 85379; 87040; 93005; J0696; J1650; J1940; J3375